=== PATIENT | male | born 1985 | race Caucasian/White ===

== ENCOUNTER 2019-06-21 12:47 | Inpatient (IN) | payer SELFPAY ==
[~2019-06-21] VITALS: Ht 180.3 cm; Wt 79.8 kg
[2019-06-21 13:20] LABS: BASOPHILS % (AUTO) 0 % (0-10); EOSINOPHILS % (AUTO) 0 % (0-10); HEMATOCRIT 33 % (40-54); HEMOGLOBIN 11.4 G/DL (13.3-17.7); LYMPHOCYTES # (AUTO) 0.6 X 10^3 (1.0-4.0); LYMPHOCYTES % (AUTO) 9 % (12-44); MEAN CORPUSCULAR HEMOGLOBIN 32 PG (25-34); MEAN CORPUSCULAR HGB CONC 35 G/DL (32-36); MEAN CORPUSCULAR VOLUME 92 FL (80-99); MEAN PLATELET VOLUME 11.2 FL (7.4-10.4); MONOCYTES % (AUTO) 13 % (0-12); NEUTROPHILS # (AUTO) 5.8 X 10^3 (1.8-7.8); NEUTROPHILS % (AUTO) 78 % (42-75); PLATELET COUNT 83 10^3/uL (130-400); RED CELL DISTRIBUTION WIDTH 19.5 % (10.0-14.5); WHITE BLOOD COUNT 7.4 10^3/uL (4.3-11.0)
[2019-06-21 13:27] LABS: INR 1.3 (0.8-1.4)
[2019-06-21 13:33] LABS: ALANINE AMINOTRANSFERASE 45 U/L (0-55); ALBUMIN 3.6 GM/DL (3.2-4.5); ALKALINE PHOSPHATASE 250 U/L (40-136); AMMONIA 45 UMOL/L (11-32); BUN/CREATININE RATIO 5; CALCIUM 8.8 MG/DL (8.5-10.1); CARBON DIOXIDE 26 MMOL/L (21-32); CHLORIDE 95 MMOL/L (98-107); CREATININE SERUM 0.65 MG/DL (0.60-1.30); GFR ESTIMATED > 60; GLUCOSE 117 MG/DL (70-105); POTASSIUM 3.1 MMOL/L (3.6-5.0); SODIUM 132 MMOL/L (135-145); TOTAL PROTEIN 7.6 GM/DL (6.4-8.2)
[2019-06-21 13:43] LABS: BILIRUBIN,TOTAL 14.9 MG/DL (0.1-1.0)
--- NOTE | 2019-06-21 13:57 | Diagnostic Imaging Report ---
INDICATION: Icterus. Pain. COMPARISON: 05/06/2018 FINDINGS: Single frontal view of the chest demonstrates normal heart size and pulmonary vascularity. The lungs are well aerated and clear. No large pleural effusion or pneumothorax is seen. The visualized osseous structures show no acute abnormalities. IMPRESSION: 1. No acute cardiopulmonary process. Dictated by: Dictated on workstation # [id number]
--- NOTE | 2019-06-21 14:07 | ED Abdominal Pain ---
General Chief Complaint: Abdominal/GI Problems Stated Complaint: LOWER ABD PAIN Nursing Triage Note: PT AMBULATED TO ROOM 9 PT CO OF R LOWER QUAD PAIN, PT HAS YELLOW COLOR TO SKIN AND EYES, PT ABD DISTENDED, STATES HAS HX OF ETOH. PT CO OF PAIN TO R LOWER ABD.PT HAS HAD CHILLS Sepsis Screen: No Definite Risk Source of Information: Patient Exam Limitations: No Limitations History of Present Illness Date Seen by Provider: Jun 21, 2019 Time Seen by Provider: 12:51 Initial Comments Here with report of acute onset of turning yellow which she noticed this morning. Also notes abdominal distention and lower abdominal pain. Did have chills this morning. Has not felt well over the last couple of days. Has had nausea. Used to be a heavy alcohol drinker but has not drank for a few years. Has had esophageal banding 2 and that has been at least 3 years ago now. Timing/Duration: 2-3 Days Severity/Quality: Moderate, Aching Location: RLQ, LLQ Radiation: No Radiation Activities at Onset: None Modifying Factors: Worsens With Eating Associated Symptoms: No Back Pain, No Chest Pain; Fever/Chills, Fatigue, Nausea/Vomiting, Shortness of Air, Swelling/Mass in Abdomen, Weakness Allergies and Home Medications Allergies Coded Allergies: No Known Drug Allergies (Unverified , 06/21/19) Patient Home Medication List Home Medication List Reviewed: Yes Review of Systems Review of Systems Constitutional: see HPI, chills, fever, malaise, weakness EENTM: See HPI; No Eye Pain, No Ear Pain Respiratory: Denies Cough; Shortness of Air; Denies Wheezing Cardiovascular: Denies Chest Pain, Denies Edema; Lightheadedness Gastrointestinal: Abdomen Distended, Abdominal Pain, Constipated, Nausea Genitourinary: No Symptoms Reported Musculoskeletal: muscle weakness; No neck pain Skin: change in color; No lesions Psychiatric/Neurological: Denies Headache; Weakness All Other Systems Reviewed Negative Unless Noted: Yes Past Uzbplfk-Oujqhp-Wqipxq Hx Past Med/Social Hx: Reviewed Nursing Past Med/Soc Hx Patient Social History Alcohol Use: Past History Number of Drinks Today: 0 Recreational Drug Use: No Smoking Status: Current Everyday Smoker Type Used: Cigarettes Recent Foreign Travel: No Contact w/Someone Who Travel: No Recent Infectious Disease Expo: No Recent Hopitalizations: No Physical Abuse: No Sexual Abuse: No Past Medical History Surgeries: Yes (BANDING ESOPHAGEAL VARCIES) Respiratory: No Cardiac: No Neurological: No Genitourinary: No Musculoskeletal: No Endocrine: No HEENT: No Cancer: No Psychosocial: No Blood Disorders: No Adverse Reaction/Blood Tranf: No Family Medical History Reviewed Nursing Family Hx Physical Exam Vital Signs Vital Signs - First Documented 06/21/19 13:00 Temp 100.3 Pulse 103 Resp 18 B/P (MAP) 140/87 (104) Pulse Ox 99 Capillary Refill : Less Than 3 Seconds Height/Weight/BMI Height: 5'11.00" Weight: 175lbs. oz. 79.139148wn; BMI Method:Stated General Appearance: WD/WN, no apparent distress HEENT: PERRL/EOMI, pharynx normal, scleral icterus (R), scleral icterus (L) Neck: full range of motion, supple Respiratory: lungs clear, decreased breath sounds; No wheezing Cardiovascular: no murmur, tachycardia Peripheral Pulses: 2+ Dorsalis Pedis (R), 2+ Left Dors-Pedis (L), 2+ Radial Pulses (R), 2+ Radial Pulses (L) Gastrointestinal: soft, distended, tenderness (bilateral lower quadrants), hepatomegaly Extremities: non-tender, normal inspection Back: normal inspection, no CVA tenderness, no vertebral tenderness Neurologic/Psychiatric: alert, oriented x 3 Skin: warm/dry, jaundice Focused Exam Lactate Level 06/21/19 13:10: Lactic Acid Level 2.78*H 06/21/19 15:10: Lactic Acid Level 1.65 Lactic Acid Level Laboratory Tests Test 06/21/19 13:10 06/21/19 15:10 Lactic Acid Level 2.78 MMOL/L (0.50-2.00) *H 1.65 MMOL/L (0.50-2.00) Progress/Results/Core Measures Results/Orders Lab Results Laboratory Tests Test 06/21/19 13:10 06/21/19 14:48 06/21/19 15:10 Range/Units White Blood Count 7.4 4.3-11.0 10^3/uL Red Blood Count 3.57 L 4.35-5.85 10^6/uL Hemoglobin 11.4 L 13.3-17.7 G/DL Hematocrit 33 L 40-54 % Mean Corpuscular Volume 92 80-99 FL Mean Corpuscular Hemoglobin 32 25-34 PG Mean Corpuscular Hemoglobin Concent 35 32-36 G/DL Red Cell Distribution Width 19.5 H 10.0-14.5 % Platelet Count 83 L 130-400 10^3/uL Mean Platelet Volume 11.2 H 7.4-10.4 FL Neutrophils (%) (Auto) 78 H 42-75 % Lymphocytes (%) (Auto) 9 L 12-44 % Monocytes (%) (Auto) 13 H 0-12 % Eosinophils (%) (Auto) 0 0-10 % Basophils (%) (Auto) 0 0-10 % Neutrophils # (Auto) 5.8 1.8-7.8 X 10^3 Lymphocytes # (Auto) 0.6 L 1.0-4.0 X 10^3 Monocytes # (Auto) 1.0 0.0-1.0 X 10^3 Eosinophils # (Auto) 0.0 0.0-0.3 10^3/uL Basophils # (Auto) 0.0 0.0-0.1 10^3/uL Prothrombin Time 17.0 H 12.2-14.7 SEC INR Comment 1.3 0.8-1.4 Activated Partial Thromboplast Time 44 H 24-35 SEC Sodium Level 132 L 135-145 MMOL/L Potassium Level 3.1 L 3.6-5.0 MMOL/L Chloride Level 95 L 98-107 MMOL/L Carbon Dioxide Level 26 21-32 MMOL/L Anion Gap 11 5-14 MMOL/L Blood Urea Nitrogen 3 L 7-18 MG/DL Creatinine 0.65 0.60-1.30 MG/DL Estimat Glomerular Filtration Rate > 60 BUN/Creatinine Ratio 5 Glucose Level 117 H 70-105 MG/DL Lactic Acid Level 2.78 *H 1.65 0.50-2.00 MMOL/L Calcium Level 8.8 8.5-10.1 MG/DL Corrected Calcium 9.1 8.5-10.1 MG/DL Total Bilirubin 14.9 *H 0.1-1.0 MG/DL Aspartate Amino Transf (AST/SGOT) 144 H 5-34 U/L Alanine Aminotransferase (ALT/SGPT) 45 0-55 U/L Alkaline Phosphatase 250 H 40-136 U/L Ammonia 45 H 11-32 UMOL/L Total Protein 7.6 6.4-8.2 GM/DL Albumin 3.6 3.2-4.5 GM/DL Urine Color LOWELL H Urine Clarity SLIGHTLY CLOUDY Urine pH 6.5 5-9 Urine Specific [place] 1.015 L 1.016-1.022 Urine Protein 2+ H NEGATIVE Urine Glucose (UA) NEGATIVE NEGATIVE Urine Ketones 2+ H NEGATIVE Urine Nitrite POSITIVE H NEGATIVE Urine Bilirubin 3+ H NEGATIVE Urine Urobilinogen 8 H NORMAL MG/DL Urine Leukocyte Esterase 1+ H NEGATIVE Urine RBC (Auto) 2+ H NEGATIVE Urine RBC RARE /HPF Urine WBC 2-5 /HPF Urine Squamous Epithelial Cells 0-2 /HPF Urine Crystals PRESENT H /LPF Urine Amorphous Sediment FEW ENRIKE URATES H /LPF Urine Bacteria FEW H /HPF Urine Casts NONE /LPF Urine Mucus LARGE H /LPF Urine Culture Indicated CULTURE PENDING My Orders Orders - ESTEFANI HARTMAN MD Cbc With Automated Diff (06/21/19 13:01) Comprehensive Metabolic Panel (06/21/19 13:01) Blood Culture (06/21/19 13:01) Sputum Culture (06/21/19 13:01) Urinalysis (06/21/19 13:01) Urine Culture (06/21/19 13:01) Protime With Inr (06/21/19 13:01) Partial Thromboplastin Time (06/21/19 13:01) Chest 1 View, Ap/Pa Only (06/21/19 13:01) Ed Iv/Invasive Line Start (06/21/19 13:01) Vital Signs Adult Sepsis Patie Q15M (06/21/19 13:01) Remove Rings In Anticipation O (06/21/19 13:01) Lactic Acid Analyzer (06/21/19 13:01) Ammonia (06/21/19 13:01) Ct Abdomen/Pelvis W (06/21/19 13:57) Iohexol Injection (Omnipaque 350 Mg/Ml 1 (06/21/19 14:15) Di Iv Start (Assessment) .IV start (06/21/19 14:13) Received Contrast (Hold Metformin- Contr (06/21/19 14:15) Ns (Ivpb) (Sodium Chloride 0.9% Ivpb Bag (06/21/19 14:15) Ceftriaxone For Iv Use (Rocephin For I (06/21/19 16:30) Nicotine Patch (Nicoderm Patch) (06/21/19 16:45) Medications Given in ED Current Medications Medications Dose Ordered Sig/Juanito Route Start Time Stop Time Status Last Admin Dose Admin Ceftriaxone Sodium 1000 mg/ Sterile Water 10 ml @ 200 mls/hr ONCE ONCE IV 06/21/19 16:30 06/21/19 16:32 DC 06/21/19 16:29 200 MLS/HR Iohexol 100 ml ONCE ONCE IV 06/21/19 14:15 06/21/19 14:43 DC 06/21/19 14:54 85 ML Sodium Chloride 100 ml ONCE ONCE IV 06/21/19 14:15 06/21/19 14:43 DC 06/21/19 14:54 80 ML Vital Signs/I&O 06/21/19 13:00 Temp 100.3 Pulse 103 Resp 18 B/P (MAP) 140/87 (104) Pulse Ox 99 Blood Pressure Mean: 104 Progress Progress Note : Progress Note Seen and evaluated. IV, labs, EKG and chest x-ray ordered. Ammonia, lactic acid and blood cultures ordered. UA ordered. Monitor patient. Patient declined pain medicine and does not need anything for nausea currently. Anticipate CT abdomen pelvis. 1407: CT abdomen and pelvis with contrast ordered. Monitor patient. 1 610: CT results noted. I have talked with Dr. Lees, surgeon on-call. Patient will need MRI and I did try to get this done this evening but there were no MRI slots available. There is an MRI slot tomorrow. UTI noted. Patient did have elevated lactic acid which is improved. We will initiate Rocephin 1 g IV which is been ordered. Patient to be admitted with Dr. Lees on consult. I did discuss the case with Dr. Floyd and she accepts patient for admission, inpatient status. Nicotine patch ordered. Discussed with patient and family who agree with plan. Diagnostic Imaging Diagonstic Imaging: Xray Plain Films/CT/US/NM/MRI: chest Comments [facility] [place], [place] NAME: JACKIE MARTINEZ MED REC#: [id number] PT STATUS: REG ER : 1985 PHYSICIAN: ESTEFANI HARTMAN MD ADMIT DATE: 06/21/19/ER Draft Date of Exam:06/21/19 CHEST 1 VIEW, AP/PA ONLY INDICATION: Icterus. Pain. COMPARISON: 05/06/2018 FINDINGS: Single frontal view of the chest demonstrates normal heart size and pulmonary vascularity. The lungs are well aerated and clear. No large pleural effusion or pneumothorax is seen. The visualized osseous structures show no acute abnormalities. IMPRESSION: 1. No acute cardiopulmonary process. Dictated on workstation # [id number] Dict: 06/21/19 1353 Trans: 06/21/19 1356 [id number] Interpreted by: SABRINA WARD MD Electronically signed by: Reviewed: Reviewed by Me Diagonstic Imaging: CT Plain Films/CT/US/NM/MRI: abdomen, pelvis Comments Draft Date of Exam:06/21/19 CT ABDOMEN/PELVIS W PROCEDURE: CT abdomen and pelvis with contrast. TECHNIQUE: Multiple contiguous axial images were obtained through the abdomen and pelvis after administration of intravenous contrast. Auto Exposure Controls were utilized during the CT exam to meet ALARA standards for radiation dose reduction. INDICATION: Lower abdominal pain. FINDINGS: Comparison is 10/26/2015. Liver is enlarged. The attenuation of the liver is markedly heterogeneous. In addition, there is an area of arterial enhancement in segment 4A which was not seen on the prior exam. It measures 6.5 x 3.5 cm. The degree of heterogeneity throughout the liver may reflect areas of steatosis and sparing as the liver was severely steatotic on the prior exam. The liver surface appears nodular in keeping with cirrhosis. Gallbladder is normal with the exception of mild wall thickening which is likely related to liver disease. Pancreas is normal. Spleen is enlarged suggestive of portal hypertension. Adrenal glands are normal. Kidneys enhance symmetrically without focal lesion. No hydronephrosis. Urinary bladder is well. There are no dilated loops of large or small bowel. There is wall thickening and stranding about the ascending colon likely reflective of portal hypertensive colopathy. No bowel obstruction. There is a small volume of ascites. No abdominal or pelvic lymphadenopathy. There are no suspicious osseous lesions. IMPRESSION: 1. Enlarged and heterogeneous liver with surface nodularity. Splenomegaly. Findings most consistent with cirrhosis and portal hypertension. 2. Fairly large area of arterial hyperenhancement in segment 4A is concerning for hepatocellular carcinoma, less likely an intrahepatic portosystemic shunt. A dedicated liver MRI with gadolinium is recommended for further evaluation. 3. Thickened ascending colon likely representing portal hypertensive colopathy. 4. The severe heterogeneity of the liver is likely in part related to severe steatosis with areas of sparing, as the liver was severely steatotic on the prior exam. An MRI will be helpful for confirmation that this is fat deposition rather than infiltrative hepatocellular carcinoma. Dictated on workstation # [id number] Dict: 06/21/19 1449 Trans: 06/21/19 1507 [facility] [id number] Interpreted by: TANIKA LANE MD Electronically signed by: Departure Communication (Admissions) Time/Spoke to Admitting Phy: 16:15 Time/Spoke to Consulting Phy: 16:10 Impression Primary Impression: Liver mass Additional Impressions: Liver failure Qualified Codes: K72.00 - Acute and subacute hepatic failure without coma Urinary tract infection Qualified Codes: N30.00 - Acute cystitis without hematuria Disposition: ADMITTED INPATIENT Condition: Stable Admissions Decision to Admit Reason: Admit from ER (General) Decision to Admit/Date: Jun 21, 2019 Time/Decision to Admit Time: 16:10 Departure-Patient Inst. Referrals: NO,LOCAL PHYSICIAN (PCP) Primary Care Physician ESTEFANI HARTMAN MD Jun 21, 2019 14:07
[2019-06-21] MEDS ORDERED: HOLD METFORMIN - RECEIVED CONTRAST 20 ML VIAL IV SCH (14:15)
[2019-06-21] MEDS ORDERED: NS 100 ML (IVPB) BAG IV ONE (14:15)
[2019-06-21] MEDS ORDERED: IOHEXOL 350 MG/ML 100 ML (OMNIPAQUE 350) VIAL IV ONE (14:15)
[2019-06-21 15:02] LABS: CLARITY,URINE SLIGHTLY CLOUDY; COLOR,URINE AMBER; GLUCOSE, URINE (UA) NEGATIVE (NEGATIVE); KETONES,URINE 2+ (NEGATIVE); LEUKOCYTE ESTERASE ,URINE 1+ (NEGATIVE); NITRITE,URINE POSITIVE (NEGATIVE); PH,URINE 6.5 (5-9); PROTEIN,URINE 2+ (NEGATIVE); UROBILINOGEN,URINE 8 MG/DL (NORMAL)
--- NOTE | 2019-06-21 15:07 | Diagnostic Imaging Report ---
PROCEDURE: CT abdomen and pelvis with contrast. TECHNIQUE: Multiple contiguous axial images were obtained through the abdomen and pelvis after administration of intravenous contrast. Auto Exposure Controls were utilized during the CT exam to meet ALARA standards for radiation dose reduction. INDICATION: Lower abdominal pain. FINDINGS: Comparison is 10/26/2015. Liver is enlarged. The attenuation of the liver is markedly heterogeneous. In addition, there is an area of arterial enhancement in segment 4A which was not seen on the prior exam. It measures 6.5 x 3.5 cm. The degree of heterogeneity throughout the liver may reflect areas of steatosis and sparing as the liver was severely steatotic on the prior exam. The liver surface appears nodular in keeping with cirrhosis. Gallbladder is normal with the exception of mild wall thickening which is likely related to liver disease. Pancreas is normal. Spleen is enlarged suggestive of portal hypertension. Adrenal glands are normal. Kidneys enhance symmetrically without focal lesion. No hydronephrosis. Urinary bladder is well. There are no dilated loops of large or small bowel. There is wall thickening and stranding about the ascending colon likely reflective of portal hypertensive colopathy. No bowel obstruction. There is a small volume of ascites. No abdominal or pelvic lymphadenopathy. There are no suspicious osseous lesions. IMPRESSION: 1. Enlarged and heterogeneous liver with surface nodularity. Splenomegaly. Findings most consistent with cirrhosis and portal hypertension. 2. Fairly large area of arterial hyperenhancement in segment 4A is concerning for hepatocellular carcinoma, less likely an intrahepatic portosystemic shunt. A dedicated liver MRI with Gadavist is recommended for further evaluation. 3. Thickened ascending colon likely representing portal hypertensive colopathy. 4. The severe heterogeneity of the liver is likely in part related to severe steatosis with areas of sparing, as the liver was severely steatotic on the prior exam. An MRI will be helpful for confirmation that this is fat deposition rather than infiltrative hepatocellular carcinoma. Dictated by: Dictated on workstation # [id number]
[2019-06-21 15:18] LABS: RBC,URINE RARE /HPF
[2019-06-21 15:19] LABS: AMORPHOUS SEDIMENT,UR FEW AMOR URATES /LPF; BACTERIA,URINE FEW /HPF; SQUAMOUS EPITHELIAL CELL,UR 0-2 /HPF
[2019-06-21 15:27] LABS: BILIRUBIN,URINE 3+ (NEGATIVE)
[2019-06-21] MEDS ORDERED: cefTRIAXone FOR IV USE 1,000 MG in WATER (STERILE) FOR INJECTION 10 ML IV ONE (16:30)
[2019-06-21] MEDS ORDERED: NICOTINE 21 MG (NICODERM) PATCH TD ONE (16:45)
[2019-06-21 17:52] VITALS: BP 132/88
[2019-06-21] MEDS ORDERED: CATHETER FLUSH 10 ML SYR IV PRN (18:00)
[2019-06-21] MEDS ORDERED: ONDANSETRON 4 MG/2 ML (SDV) Z0FRAN IV PRN ×2 (18:00→21:00)
[2019-06-21] MEDS ORDERED: LORazepam 0.5 MG (ATIVAN) TABLET PO PRN (18:00)
--- NOTE | 2019-06-21 18:00 | NUR ---
JACKIE MARTINEZ Nando admitted to room 409-1, with an admitting diagnosis of live mass, on 06/21/19 from ER, accompanied by staff and significant other .JACKIE MARTINEZ introduced to surroundings, call light, bed controls, phone, TV, temperature control, lights, meal times, smoking policy, visitor policy, side rail policy, bathrooms and showers. Patient Rights given to patient in the handbook. JACKIE MARTINEZ verbalizes understanding that [facility] is not responsible for the loss or damage to any personal effects or valuables that are kept in the patients posession during their hospitalization. The following Patient Care Plans and discharge were discussed with the patient . JACKIE MARTINEZ verbalizes understanding of Interdisciplinary Patient Education. Patient and significant other were informed about the Rapid Response Team and its purpose.
[2019-06-21 19:24] VITALS: BP 118/76
[2019-06-21] MEDS ORDERED: ANTACID SUSP 30 ML UDC (MYLANTA) PO PRN (21:00)
[2019-06-21] MEDS ORDERED: ACETAMINOPHEN 325 MG TABLET PO PRN (21:00)
[2019-06-21] MEDS ORDERED: MELATONIN 3 MG TABLET PO SCH (21:00)
[2019-06-21] MEDS ORDERED: MILK OF MAGNESIA 400 MG/5 ML 30 ML UDC PO PRN (21:00)
[2019-06-21] MEDS: CATHETER FLUSH 10 ML SYR IV SCH (21:21)
[2019-06-22 00:37] VITALS: BP 112/65
[2019-06-22 03:48] VITALS: BP 112/68
[2019-06-22] MEDS: CATHETER FLUSH 10 ML SYR IV SCH ×2 (05:59→15:04)
[2019-06-22 07:07] LABS: BASOPHILS % (AUTO) 0 % (0-10); EOSINOPHILS # (AUTO) 0.1 10^3/uL (0.0-0.3); EOSINOPHILS % (AUTO) 1 % (0-10); HEMATOCRIT 29 % (40-54); HEMOGLOBIN 9.9 G/DL (13.3-17.7); LYMPHOCYTES # (AUTO) 0.7 X 10^3 (1.0-4.0); LYMPHOCYTES % (AUTO) 11 % (12-44); MEAN CORPUSCULAR HEMOGLOBIN 32 PG (25-34); MEAN CORPUSCULAR HGB CONC 34 G/DL (32-36); MEAN CORPUSCULAR VOLUME 92 FL (80-99); MEAN PLATELET VOLUME 11.3 FL (7.4-10.4); MONOCYTES # (AUTO) 0.9 X 10^3 (0.0-1.0); MONOCYTES % (AUTO) 15 % (0-12); NEUTROPHILS # (AUTO) 4.6 X 10^3 (1.8-7.8); NEUTROPHILS % (AUTO) 73 % (42-75); PLATELET COUNT 84 10^3/uL (130-400); RED CELL DISTRIBUTION WIDTH 19.5 % (10.0-14.5); WHITE BLOOD COUNT 6.4 10^3/uL (4.3-11.0)
[2019-06-22 07:27] LABS: INR 1.4 (0.8-1.4); PROTHROMBIN TIME PATIENT 17.6 SEC (12.2-14.7)
[2019-06-22 07:37] LABS: ALANINE AMINOTRANSFERASE 36 U/L (0-55); ALBUMIN 3.1 GM/DL (3.2-4.5); ALKALINE PHOSPHATASE 222 U/L (40-136); BUN/CREATININE RATIO 7; CALCIUM 8.4 MG/DL (8.5-10.1); CARBON DIOXIDE 22 MMOL/L (21-32); CHLORIDE 97 MMOL/L (98-107); CREATININE SERUM 0.57 MG/DL (0.60-1.30); GFR ESTIMATED > 60; GLUCOSE 80 MG/DL (70-105); POTASSIUM 3.2 MMOL/L (3.6-5.0); SODIUM 134 MMOL/L (135-145); TOTAL PROTEIN 6.4 GM/DL (6.4-8.2)
[2019-06-22 07:41] LABS: BILIRUBIN,TOTAL 12.3 MG/DL (0.1-1.0)
[2019-06-22] MEDS ORDERED: MULT1TAB69 PO (08:44)
[2019-06-22] MEDS ORDERED: DIPH25CA79 PO (08:44)
[2019-06-22] MEDS ORDERED: POTA99TA21 PO (08:44)
[2019-06-22] MEDS ORDERED: FOLI0.8C PO (08:44)
[2019-06-22] MEDS ORDERED: CALC-654 PO (08:44)
[2019-06-22 08:56] VITALS: BP 108/62
[2019-06-22] MEDS ORDERED: NICOTINE PATCH REMOVAL TP SCH (08:59)
[2019-06-22] MEDS ORDERED: NICOTINE 21 MG (NICODERM) PATCH TD SCH (09:00)
--- NOTE | 2019-06-22 10:12 | History & Physical-Hospitalist ---
History of Present Illness Source: patient Date Seen 06/22/19 Attending Physician Marques Floyd MD PCP Corey Rebolledo MD Referring Physician Date of Admission Jun 21, 2019 at 4:52 pm Home Medications & Allergies Home Medications Reviewed patient Home Medication Reconciliation performed by pharmacy medication reconciliations airplane technician and/or nursing. Patients Allergies have been reviewed. Allergies Allergies Coded Allergies No Known Drug Allergies (Unverified06/21/19) Past Fnktqip-Mvdpxy-Nmotoo Hx Past Med/Social Hx: Reviewed Nursing Past Med/Soc Hx Patient Social History Alcohol Use: Past History Number of Drinks Today: 0 Recreational Drug Use: No Smoking Status: Current Everyday Smoker Type Used: Cigarettes Physical Abuse Screen: No Sexual Abuse: No Recent Foreign Travel: No Contact w/other who traveled: No Recent Hopitalizations: No Recent Infectious Disease Expo: No Seasonal Allergies Seasonal Allergies: Yes Past Medical History Genitourinary: Kidney Infection Skin/Integumentary: Psoriasis History of Blood Disorders: No Adverse Reaction to Blood Sykes: No Family History Reviewed Nursing Family Hx Alcoholism Cardiovascular disease Dysphasia Psychosocial problem Severe allergy Visual disorder Physical Exam Physical Exam Vital Signs Vital Signs - First Documented 06/21/19 13:00 Temp 100.3 Pulse 103 Resp 18 B/P (MAP) 140/87 (104) Pulse Ox 99 Capillary Refill : Less Than 3 Seconds Height, Weight, BMI Height: 5'11.00" Weight: 176lbs. 0.0oz. 79.713806rc; 24.6 BMI Method:Stated Results Results/Procedures Labs Laboratory Tests 06/21/19 13:10 06/22/19 05:38 Patient resulted labs reviewed. Clinical Quality Measures DVT/VTE Risk/Contraindication: Risk Factor Score Per Nursin RFS Level Per Nursing on Admit: 2=Moderate MARQUES FLOYD MD Jun 22, 2019 10:12 am
[2019-06-22] MEDS ORDERED: GADOBUTROL 10 MMOL/10 ML (GADAVIST) VIAL IV ONE (11:15)
[2019-06-22 12:00] VITALS: BP 131/85
[2019-06-22] MEDS ORDERED: CEPH-507 PO (12:29)
--- NOTE | 2019-06-22 13:58 | Diagnostic Imaging Report ---
PROCEDURE: MR imaging abdomen with and without contrast. TECHNIQUE: Multiplanar, multisequence MR imaging of the abdomen was performed with and without contrast. INDICATION: Liver failure. FINDINGS: The CT abdomen/pelvis exam of 06/21/2019 noted an enlarged heterogeneous liver with surface nodularity as well as splenomegaly. MRI was recommended for further evaluation. On the system dispatcher film of this exam, however, there is metallic artifact in the left upper quadrant. In reviewing the CT abdomen/pelvis exam, there was a 1.8 cm linear metallic density within the lumen of the stomach. Because the nature of this metallic density was unknown, the MRI exam was terminated. IMPRESSION: 1. The MRI exam was terminated due to the presence of a metallic foreign body in the stomach. If the nature of the foreign body can be determined or if the foreign body can be removed, the MRI exam can be performed. 2. These results were discussed with Dr. Bibi Floyd. Dictated by: Dictated on workstation # [id number]
--- NOTE | 2019-06-22 14:15 | Short Stay Summary-Hospitalist ---
History of Present Illness HPI/Chief Complaint Pt is a a 34yoCM with a PMH of esophageal varices, alcoholic cirrhosis who presented to the ER with CC of abdominal pain and yellow skin. He states that his symptoms started 06/16 with cramping abdominal pain. It continued to worsen and he noticed on 06/18 that his skin was yellowing. His pain continued to worsen prompting him to seek evaluation in the ER. He describes the pain as cramping. He googled his symptoms and thought he had appendicitis. He was also suffering from chills and subjective fevers. His appetite was decreased and he was trying to increase his fluid intake but thought he had decreased urine output. On arrival to the ER he was found to have a a bilirubin on >14. He was also found to have a urinary tract infection. CT abdomen was done which revealed a possible HCC. He was admitted for observation. This morning he reports feeling much better and was able to get some sleep overnight. He still has some pain but that is improving. Source: patient Date Seen 06/22/19 Time Seen by a Provider: 09:30 Attending Physician Marques Floyd MD PCP Corey Rebolledo MD Referring Physician Date of Admission Jun 21, 2019 at 16:52 Home Medications & Allergies Home Medications Reviewed patient Home Medication Reconciliation performed by pharmacy medication reconciliations pbx technician and/or nursing. Patients Allergies have been reviewed. Allergies Allergies Coded Allergies No Known Drug Allergies (Unverified06/21/19) Past Diuzkdb-Uotgql-Mbdvkk Hx Past Med/Social Hx: Reviewed Nursing Past Med/Soc Hx Patient Social History Alcohol Use: Occasionally Uses (with history of significant alcohol abuse) Number of Drinks Today: 0 Recreational Drug Use: No Smoking Status: Current Everyday Smoker Cigaretts per day: 10 Type Used: Cigarettes Physical Abuse Screen: No Sexual Abuse: No Recent Foreign Travel: No Contact w/other who traveled: No Recent Hopitalizations: No Recent Infectious Disease Expo: No Seasonal Allergies Seasonal Allergies: Yes Past Medical History Surgeries: Abdominal (esophageal varices banding) Genitourinary: Kidney Infection Skin/Integumentary: Psoriasis History of Blood Disorders: No Adverse Reaction to Blood Sykes: No Family History Reviewed Nursing Family Hx Alcoholism Cardiovascular disease Dysphasia Psychosocial problem Severe allergy Visual disorder Review of Systems Constitutional: chills; No fever; malaise EENTM: no symptoms reported Respiratory: No cough, No dyspnea on exertion, No short of breath Cardiovascular: No chest pain, No palpitations Gastrointestinal: abdominal pain (RLQ); No constipation, No diarrhea, No heartburn, No nausea, No vomiting Genitourinary: decreased output Musculoskeletal: no symptoms reported Skin: change in color Psychiatric/Neurological: Anxiety; Denies Headache, Denies Weakness Physical Exam Physical Exam Vital Signs Vital Signs - First Documented 06/21/19 13:00 Temp 100.3 Pulse 103 Resp 18 B/P (MAP) 140/87 (104) Pulse Ox 99 Capillary Refill : Less Than 3 Seconds Height, Weight, BMI Height: 5'11.00" Weight: 176lbs. 0.0oz. [id number]; 24.6 BMI Method:Stated General Appearance: No Apparent Distress, WD/WN Eyes: Bilateral Eye Scleral Icterus HEENT: Moist Mucous Membranes, Scleral Icterus (L), Scleral Icterus (R) Neck: Non Tender, Supple; No Thyromegaly Respiratory: Lungs Clear, No Accessory Muscle Use, No Respiratory Distress Cardiovascular: Regular Rate, Rhythm, No JVD, No Murmur Gastrointestinal: Normal Bowel Sounds, Non Tender, Soft, Distended; No Guarding; Hepatomegaly Extremity: No Calf Tenderness, No Pedal Edema Neurologic/Psychiatric: Alert, Oriented x3, Normal Mood/Affect; No Aphasia, No Facial Droop Skin: Warm/Dry, Jaundice Results Results/Procedures Labs Laboratory Tests 06/22/19 05:38 Patient resulted labs reviewed. Imaging: Reviewed Imaging Report, Discussed Imaging with Radiologist Imaging Date of Exam: 06/21/19 CT ABDOMEN/PELVIS W PROCEDURE: CT abdomen and pelvis with contrast. TECHNIQUE: Multiple contiguous axial images were obtained through the abdomen and pelvis after administration of intravenous contrast. Auto Exposure Controls were utilized during the CT exam to meet ALARA standards for radiation dose reduction. INDICATION: Lower abdominal pain. FINDINGS: Comparison is 10/26/2015. Liver is enlarged. The attenuation of the liver is markedly heterogeneous. In addition, there is an area of arterial enhancement in segment 4A which was not seen on the prior exam. It measures 6.5 x 3.5 cm. The degree of heterogeneity throughout the liver may reflect areas of steatosis and sparing as the liver was severely steatotic on the prior exam. The liver surface appears nodular in keeping with cirrhosis. Gallbladder is normal with the exception of mild wall thickening which is likely related to liver disease. Pancreas is normal. Spleen is enlarged suggestive of portal hypertension. Adrenal glands are normal. Kidneys enhance symmetrically without focal lesion. No hydronephrosis. Urinary bladder is well. There are no dilated loops of large or small bowel. There is wall thickening and stranding about the ascending colon likely reflective of portal hypertensive colopathy. No bowel obstruction. There is a small volume of ascites. No abdominal or pelvic lymphadenopathy. There are no suspicious osseous lesions. IMPRESSION: 1. Enlarged and heterogeneous liver with surface nodularity. Splenomegaly. Findings most consistent with cirrhosis and portal hypertension. 2. Fairly large area of arterial hyperenhancement in segment 4A is concerning for hepatocellular carcinoma, less likely an intrahepatic portosystemic shunt. A dedicated liver MRI with Gadavist is recommended for further evaluation. 3. Thickened ascending colon likely representing portal hypertensive colopathy. 4. The severe heterogeneity of the liver is likely in part related to severe steatosis with areas of sparing, as the liver was severely steatotic on the prior exam. An MRI will be helpful for confirmation that this is fat deposition rather than infiltrative hepatocellular carcinoma. Short Stay Diagnosis Discharge Diagnosis-Short Stay Admission Diagnosis ESLD with hyperbilirubinemia Final Discharge Diagnosis ESLD with hyperbilirubinemia Conclusion Plan ESLD with hyperbilirubinemia Alcoholic Cirrhosis HCC Bilirubin elevated but trending down Discussed with Dr Lees who will see in consultation Needs outpatient hepatology Unable to get MRI due to metallic object in stomach- likely banding per Dr Lees I called and discussed with his PCP Dr Rebolledo to update him to these findings UTI Continue on Rocephin Transition to Keflex for DC Clinical Quality Measures DVT/VTE Risk/Contraindication: Risk Factor Score Per Nursin RFS Level Per Nursing on Admit: 2=Moderate MARQUES FLOYD MD Jun 22, 2019 14:15
[2019-06-22] MEDS ORDERED: cefTRIAXone 1,000 MG/SWFI 10 ML IV PUSH IV SCH ×2 (16:00)
--- NOTE | 2019-06-22 16:23 | Discharge Inst-Simple/Standard ---
Discharge Inst-Standard Patient Instructions/Follow Up Plan of Care/Instructions/FU: Please continue to take your medications as written. It is important to follow up with your primary care doctor to follow up this hospital stay and with your GI Dr Dr Tang to further follow up on your liver. Activity as Tolerated: Yes Discharge Diet: Other Diet (Per Dr Lees's recommendations) Return to The Hospital For: Fever, worsening pain, confusion, if you feel you are getting worse. MARQUES PAN MD Jun 22, 2019 4:19 pm
[2019-06-22 17:21] VITALS: BP 131/85
--- NOTE | 2019-06-23 12:03 | CONSULTATION REPORT ---
DATE OF SERVICE: 06/21/2019 ATTENDING PHYSICIAN: Corey Rebolledo MD HISTORY OF PRESENT ILLNESS: The patient is a 34-year-old male, who presented to the emergency room late last night with complaints of jaundice as well as abdominal distention and bilateral lower abdominal pain. He reported that for approximately the last 5 days, he has felt ill and just did not feel well. He reports that yesterday he started having lower abdominal pain as well as the abdominal distention and reports that he did notice yellowing of his skin and eyes. He reports he was having some nausea. He reports that during his 20s, he did use to be a heavy drinker and would drink around a case of beer a day as well as shots and other hard liquor. He does report a history of esophageal banding and then later what sounds to be a cauterization of the esophageal varices. PAST MEDICAL HISTORY: SVT, esophageal varices, psoriasis. PAST SURGICAL HISTORY: Esophageal banding and then cauterization of the esophageal varices. ALLERGIES: No known drug allergies. MEDICATIONS: Vitamins. SOCIAL HISTORY: Positive for smoke half pack per day for approximately 15 years, previous for alcohol abuse for approximately 10-12 years. FAMILY HISTORY: Noncontributory. VITAL SIGNS: Temperature is 99.2, pulse 96, respirations 18, blood pressure 131/85, pulse ox 100% on room air. REVIEW OF SYSTEMS This is a well-nourished male, in no acute distress. He is not experiencing any shortness of breath or difficulty breathing. No chest pain, palpitations or diaphoresis. He does report some nausea, but no vomiting. He did report bilateral lower abdominal pain. No diarrhea or constipation. No red blood per rectum, no dark tarry stools. He did report chills. He did report some dysuria as well as frequency of urination. No recent inadvertent weight loss. PHYSICAL EXAMINATION: CHEST: Clear, good breath sounds bilateral. HEART: Regular, no murmurs. EXTREMITIES: No lower extremity edema. Negative Homans sign. HEENT: There is bilateral scleral icterus. No cervical adenopathy. ABDOMEN: Soft with some distention. There is some bilateral lower quadrant tenderness as well as hepatomegaly. SKIN: Warm, dry with jaundice. NEUROLOGIC: Awake, alert, and oriented x3. LABORATORY DATA: WBC is 7.4, RBC is 3.57, hemoglobin 11.4, hematocrit 33, and platelets 83. Sodium is 132, potassium is 3.1, chloride is 95, BUN 3, creatinine 0.65, and GFR greater than 60. AST is 144, ALT 45, alkaline phosphatase 250. Ammonia was 45. PT was 17.0, INR 1.3. Urine was 2+ ketones, positive for nitrite, 3+ bilirubin, 1+ leukocyte esterase, 2+ protein and 1.015 on specific gravity. ASSESSMENT AND PLAN: A 34-year-old male with urinary tract infection per urinalysis. He also had a CT scan, which did show enlarged and heterogenous liver with surface nodularity as well as splenomegaly. Findings are most consistent with cirrhosis and portal hypertension. There is also a fairly large area that was concerning for hepatocellular carcinoma of the liver. At this time, he does appear to have end-stage liver disease with hyperbilirubinemia as well as alcoholic liver cirrhosis and a possible mass of the liver. At this time, we are waiting on results of the MRI for further confirmation of a possible hepatocellular carcinoma. We will watch him at this time to proceed with conservative medical management with the liver cirrhosis with a low sodium diet of approximately 1.5 grams daily as well as a fluid restriction of 1.5 liters daily and 40-50 grams of protein daily. We will also proceed with referral for a intelligence consultant for further evaluation and management. We will have him continue with antibiotics for his urinary tract infection. Job ID: [id number] DocumentID: [id number] Dictated Date: 06/22/2019 14:36:39 Edger Machine Helper Date: 06/22/2019 17:29:07 Dictated By: DANTE PAREDES APRN
[2019-07-01] MEDS ORDERED: FURO20TA4 PO (16:49)
[2019-07-01] MEDS ORDERED: SPIR25TA5 PO (16:49)
== END 2019-06-22 17:28 | disposition home or self-care (01) | DRG 433 ==
LOC: EDUNIT# 12:47 → ER 12:48 → 4TH 16:52
PROVIDERS: ADMIT Family Medicine; ATTEND Family Medicine
DX: K70.30 Alcoholic cirrhosis of liver without ascites (principal); K76.6 Portal hypertension; N30.00 Acute cystitis without hematuria; K72.90 Hepatic failure, unspecified without coma; R16.0 Hepatomegaly, not elsewhere classified; F17.210 Nicotine dependence, cigarettes, uncomplicated; L40.9 Psoriasis, unspecified
CPT/HCPCS: 36415; 71045; 74177; 74183; 80053; 81000; 82140; 83605; 85025; 85610; 85730; 87040; 87088; 96365

== ENCOUNTER 2019-06-25 00:19 | Emergency (ER) | payer SELFPAY ==
[~2019-06-25] VITALS: Ht 180.3 cm; Wt 77.1 kg
[~2019-06-25 00:19] MED LIST: CALC-654 PO; CEPH-507 PO; DIPH25CA79 PO; FOLI0.8C PO; MULT1TAB69 PO; POTA99TA21 PO
[2019-06-25] MEDS ORDERED: CEPH500C (00:47)
[2019-06-25] MEDS ORDERED: NS IV 1000 ML 1,000 ML IV ONE ×3 (01:01→02:26)
[2019-06-25] MEDS ORDERED: PANTOPRAZOLE 40 MG (PROTONIX) VIAL IV STA (01:01)
[2019-06-25] MEDS ORDERED: PANTOPRAZOLE 40 MG (PROTONIX) VIAL IV ONE (01:15)
[2019-06-25] MEDS ORDERED: ONDANSETRON 4 MG/2 ML (SDV) Z0FRAN IVP ONE (01:15)
[2019-06-25 01:20] VITALS: BP_SYST 92; BP_SYST 94; BP_SYST 96; BP_DIAS 57; BP_DIAS 59
--- NOTE | 2019-06-25 01:31 | ED GI ---
General Chief Complaint: Abdominal/GI Problems Stated Complaint: THROWING UP BLOOD Nursing Triage Note: HEMATEMISIS X2 SINCE 0000, HX ESOPHAGEAL BANDING. DC'D FROM HOSPITAL 06/22/19 Sepsis Screen: Possible Sepsis Risk Source of Information: Patient Exam Limitations: No Limitations History of Present Illness Date Seen by Provider: Jun 25, 2019 Time Seen by Provider: 01:00 Initial Comments PT ARRIVES VIA POV FROM HOME PT HAS HISTORY OF LIVER FAILURE AND ESOPHAGEAL VARICES--S/P BANDING OF VARICES IN 2016 IN [place], AND CAUTERIZED VARICES IN [place] 11/2018. WAS ADMITTED AND DISMISSED TO HOME FROM HERE 06/21-06/22/19 FOR JAUNDICE/LIVER FAILURE AND ALSO HAD UTI. PT STARTED TURNING YELLOW OVER A WEEK AGO. ABDOMEN HAS BEEN BLOATED AND VERY FIRM FOR OVER A WEEK PT HAS NEVER SEEN A LIVER SPECIALIST, BUT IS PLANNING ON GETTING A REFERRAL TO SEE A SPECIALIST AT , BUT THIS HAS NOT BEEN DONE YET. PT STATES HE WOKE UP AT MIDNIGHT AND WAS NAUSEATED AND VOMITED PURE BLOOD X 1--STATES "3 OR 4 CUPS OF PURE BLOOD" C/O EPIGASTRIC PAIN AND SUPRAPUBIC PAIN NO LONGER NAUSEATED. NO DIARRHEA. HAD NORMAL BM TODAY. PT HAS HAD FEVER OF 100.8 EARLIER IN THE WEEK, AND WAS SENT HOME WITH RX FOR KEFLEX TO TREAT UTI. STATES TEMP HAS GRADUALLY BEEN COMING DOWN. HAD SUBJECTIVE FEVER LAST NIGHT, BUT NONE TODAY HAS HAD SOME DIFFICULTY URINATING DUE TO UTI THIS WEEK. PT STATES HE USED TO DRINK OVER A CASE OF BEER A DAY, UNTIL 2016 WHEN HE HAD BANDING OF ESOPHAGEAL VARICES CUT BACK TO A FEW MIXED DRINKS A DAY, UNTIL CAUTERIZATION OF VARICES 11/2018 HAS BEEN DRINKING "WINE WITH DINNER" UNTIL ADMIT HERE ON 06/21/19. CLAIMS NO ALCOHOL SINCE THEN. PT DENIES DRUG USE STILL SMOKES 1/2 PPD PCP: HAS BEEN DR. CALDERON IN [place]. MOVED TO [place] FOR WORK, AND RECENTLY MOVED HERE FOR WORK. HAS NOT ESTABLISHED WITH LOCAL DR. YANEZ. Allergies and Home Medications Allergies Coded Allergies: No Known Drug Allergies (Unverified , 06/21/19) Patient Home Medication List Home Medication List Reviewed: Yes Review of Systems Review of Systems Constitutional: see HPI; No dizziness; fever EENTM: Other (JAUNDICE) Respiratory: No Symptoms Reported Cardiovascular: No Symptoms Reported Gastrointestinal: See HPI, Abdominal Pain, Nausea, Vomiting (VOMITING BLOOD) Genitourinary: See HPI, Burning, Urgency Musculoskeletal: no symptoms reported Skin: other (JAUNDICE FOR OVER A WEEK) Psychiatric/Neurological: No Symptoms Reported Endocrine: No Symptoms Reported Hematologic/Lymphatic: No Symptoms Reported Past Nksruue-Ptgqjm-Htveku Hx Patient Social History Alcohol Use: Regular Use (OVER A CASE OF BEER/DAY UNTIL 2016, THEN FEW MIXED DRINKS A DAY UNTIL 11/2018, THEN "WINE WITH DINNER" SINCE THEN. CLAIMS NONE SINCE 06/21/19, PER PT ON 06/25/19) Recreational Drug Use: No Smoking Status: Current Everyday Smoker (1/2 PPD) Type Used: Cigarettes (/2 PPD) 2nd Hand Smoke Exposure: Yes Recent Foreign Travel: No Contact w/Someone Who Travel: No Recent Infectious Disease Expo: No Recent Hopitalizations: Yes (DC'D 06/22/19) Physical Abuse: No Sexual Abuse: No Mistreated: No Fear: No Immunizations Up To Date Tetanus Booster (TDap): Unknown Seasonal Allergies Seasonal Allergies: Yes Past Medical History Surgeries: Yes (ESOPHAGEAL VARICES BANDED X 2 IN 2017 IN [place]; THEN CAUTERIZATION OF ESOPHAGEAL VARICES 11/2018 IN [place]. ) Abdominal Respiratory: No Cardiac: No Neurological: No Genitourinary: Yes Kidney Infection Gastrointestinal: Yes Liver Disease/Jaundice, Gastrointestinal Bleed, Esophageal Varices, Cirrhosis Musculoskeletal: No Endocrine: No HEENT: No Cancer: No Psychosocial: No Integumentary: Yes Psoriasis Blood Disorders: No Adverse Reaction/Blood Tranf: No Family Medical History Alcoholism Cardiovascular disease Dysphasia Psychosocial problem Severe allergy Visual disorder Physical Exam Vital Signs Vital Signs - First Documented 06/25/19 00:42 Temp 100.2 Pulse 104 Resp 18 B/P (MAP) 101/58 (72) Pulse Ox 97 O2 Delivery Room Air Capillary Refill : Less Than 3 Seconds Height/Weight/BMI Height: 5'11.00" Weight: 170lbs. 0.0oz. [id number]; 24.6 BMI Method:Stated General Appearance: WD/WN, no apparent distress, other (DOES NOT APPEAR TO BE IN ANY DISCOMFORT OR DISTRESS, WALKS UPRIGHT AND MOVES WITHOUT DIFFICULTY, SMILING, TALKATIVE. ) HEENT: scleral icterus (R), scleral icterus (L) Neck: normal inspection Respiratory: normal breath sounds, no respiratory distress, no accessory muscle use Cardiovascular: regular rate, rhythm, no murmur Gastrointestinal: distended (FIRM), tenderness (MILD EPIGASTRIC AND SUPRAPUBIC TENDERNESS), hepatomegaly (6 FB'S BELOW RIGHT COSTAL MARGIN) Extremities: normal range of motion, non-tender, normal inspection, no pedal edema, no calf tenderness, normal capillary refill Back: normal inspection, no CVA tenderness Neurologic/Psychiatric: pathology secretary/transcriptionist II-XII nml as tested, no motor/sensory deficits, alert, normal mood/affect, oriented x 3 Skin: warm/dry, jaundice (MARKED) Focused Exam Lactate Level 06/25/19 01:20: Lactic Acid Level 2.49*H 06/25/19 03:25: Lactic Acid Level 1.99 Lactic Acid Level Laboratory Tests Test 06/25/19 01:20 06/25/19 03:25 Lactic Acid Level 2.49 MMOL/L (0.50-2.00) *H 1.99 MMOL/L (0.50-2.00) Progress/Results/Core Measures Results/Orders Lab Results Laboratory Tests Test 06/25/19 01:20 06/25/19 01:45 06/25/19 03:25 Range/Units White Blood Count 10.3 4.3-11.0 10^3/uL Red Blood Count 2.90 L 4.35-5.85 10^6/uL Hemoglobin 9.5 L 13.3-17.7 G/DL Hematocrit 27 L 40-54 % Mean Corpuscular Volume 94 80-99 FL Mean Corpuscular Hemoglobin 33 25-34 PG Mean Corpuscular Hemoglobin Concent 35 32-36 G/DL Red Cell Distribution Width 20.1 H 10.0-14.5 % Platelet Count 126 L 130-400 10^3/uL Mean Platelet Volume 11.2 H 7.4-10.4 FL Neutrophils (%) (Auto) 74 42-75 % Lymphocytes (%) (Auto) 9 L 12-44 % Monocytes (%) (Auto) 16 H 0-12 % Eosinophils (%) (Auto) 1 0-10 % Basophils (%) (Auto) 0 0-10 % Neutrophils # (Auto) 7.6 1.8-7.8 X 10^3 Lymphocytes # (Auto) 0.9 L 1.0-4.0 X 10^3 Monocytes # (Auto) 1.6 H 0.0-1.0 X 10^3 Eosinophils # (Auto) 0.1 0.0-0.3 10^3/uL Basophils # (Auto) 0.0 0.0-0.1 10^3/uL Prothrombin Time 18.5 H 12.2-14.7 SEC INR Comment 1.5 H 0.8-1.4 Activated Partial Thromboplast Time 42 H 24-35 SEC Sodium Level 130 L 135-145 MMOL/L Potassium Level 3.6 3.6-5.0 MMOL/L Chloride Level 93 L 98-107 MMOL/L Carbon Dioxide Level 25 21-32 MMOL/L Anion Gap 12 5-14 MMOL/L Blood Urea Nitrogen 11 7-18 MG/DL Creatinine 0.73 0.60-1.30 MG/DL Estimat Glomerular Filtration Rate > 60 BUN/Creatinine Ratio 15 Glucose Level 125 H 70-105 MG/DL Lactic Acid Level 2.49 *H 1.99 0.50-2.00 MMOL/L Calcium Level 8.1 L 8.5-10.1 MG/DL Corrected Calcium 8.9 8.5-10.1 MG/DL Magnesium Level 1.8 1.6-2.4 MG/DL Total Bilirubin 16.8 *H 0.1-1.0 MG/DL Aspartate Amino Transf (AST/SGOT) 123 H 5-34 U/L Alanine Aminotransferase (ALT/SGPT) 36 0-55 U/L Alkaline Phosphatase 156 H 40-136 U/L Ammonia 58 H 11-32 UMOL/L Total Protein 6.1 L 6.4-8.2 GM/DL Albumin 3.0 L 3.2-4.5 GM/DL Amylase Level 27 25-125 U/L Lipase 32 8-78 U/L Acetaminophen Level < 10 L 10-30 UG/ML Serum Alcohol < 10 <10 MG/DL My Orders Orders - GUSTABO GOTTLIEB DO Ed Iv/Invasive Line Start (06/25/19 01:01) Orthostatic Vital Signs (Adult (06/25/19 01:01) Acetaminophen (06/25/19 01:01) Alcohol (06/25/19 01:01) Amylase (06/25/19 01:01) Cbc With Automated Diff (06/25/19 01:01) Comprehensive Metabolic Panel (06/25/19 01:01) Drug Screen Stat (Urine) (06/25/19 01:01) Lipase (06/25/19 01:01) Magnesium (06/25/19 01:01) Protime With Inr (06/25/19 01:01) Partial Thromboplastin Time (06/25/19 01:01) Ua Culture If Indicated (06/25/19 01:01) Ed Iv/Invasive Line Start (06/25/19 01:01) Ns Iv 1000 Ml (Sodium Chloride 0.9%) (06/25/19 01:01) Ondansetron Injection (Zofran Injectio (06/25/19 01:15) Pantoprazole Injection (Protonix Injecti (06/25/19 01:01) Pantoprazole Injection (Protonix Injecti (06/25/19 01:15) Ammonia (06/25/19 01:22) Lactic Acid Analyzer (06/25/19 01:22) Hepatitis Panel Acute (06/25/19 01:23) Hiv 1&2 Antibody (06/25/19 01:23) Blood Culture (06/25/19 01:23) Chest Pa/Lat (2 View) (06/25/19 01:39) Abdomen, Flat & Upright/Decub (06/25/19 01:39) Ed Iv/Invasive Line Start (06/25/19 02:26) Ns Iv 1000 Ml (Sodium Chloride 0.9%) (06/25/19 02:26) Ed Iv/Invasive Line Start (06/25/19 02:26) Ns Iv 1000 Ml (Sodium Chloride 0.9%) (06/25/19 02:26) Medications Given in ED Current Medications Medications Dose Ordered Sig/Juanito Route Start Time Stop Time Status Last Admin Dose Admin Ondansetron HCl 4 mg ONCE ONCE IVP 06/25/19 01:15 06/25/19 01:16 DC 06/25/19 01:28 4 MG Pantoprazole 40 mg ONCE ONCE IV 06/25/19 01:15 06/25/19 01:16 DC 06/25/19 01:28 40 MG Sodium Chloride 1,000 ml @ 0 mls/hr Q0M ONCE IV 06/25/19 01:01 06/25/19 01:05 DC 06/25/19 01:28 0 MLS/HR Sodium Chloride 1,000 ml @ 0 mls/hr Q0M ONCE IV 06/25/19 02:26 06/25/19 02:28 DC 06/25/19 02:39 0 MLS/HR Sodium Chloride 1,000 ml @ 0 mls/hr Q0M ONCE IV 06/25/19 02:26 06/25/19 02:28 DC 06/25/19 02:39 0 MLS/HR Vital Signs/I&O 06/25/19 06/25/19 06/25/19 00:42 01:20 03:42 Temp 100.2 98.9 Pulse 104 93 103 96 100 Resp 18 18 B/P (MAP) 101/58 (72) 92/57 (69) 115/70 (85) 96/57 (70) 94/59 (71) Pulse Ox 97 100 O2 Delivery Room Air Room Air Blood Pressure Mean: 72 Progress Progress Note : Progress Note NO VOMITING DURING ER STAY, NAUSEA IMPROVED WITH ZOFRAN BP UP WITH FLUIDS PT UNABLE TO VOID DURING ER STAY Diagnostic Imaging Comments CXR--MILD RLL ATELECTASIS ABDOMEN XRAYS--ASCITES, HSM, NO ACUTE PROCESS PENDING RADIOLOGIST REVIEWS Reviewed: Reviewed by [facility] Departure Communication (Admissions) 0214--CALLED [facility] --MESSAGE LEFT ON MACHINE. 0215--[facility] CALLED BACK. PAGING GI SPECIALIST, DR. ESQUIVEL. 0220--SPOKE WITH DR. ESQUIVEL, HE ADVISES TO ADMIT TO ICU / HOSPITALIST. PAGING DR. REYES [phone]--SPOKE WITH DR. REYES, HOSPITALIST, ACCEPTS PT FOR ADMIT. Impression Primary Impression: Gastrointestinal hemorrhage with hematemesis Additional Impressions: End stage liver disease History of alcohol abuse Anemia Disposition: XFER SHT-TRM HOSP Condition: Stable Transfer Transfer Facility: [facility] Method of Transfer: EMS Departure-Patient Inst. Referrals: KECIA CALDERON MD (PCP/Family) Primary Care Physician GUSTABO GOTTLIEB DO Jun 25, 2019 01:31
[2019-06-25 01:46] LABS: BASOPHILS % (AUTO) 0 % (0-10); EOSINOPHILS # (AUTO) 0.1 10^3/uL (0.0-0.3); EOSINOPHILS % (AUTO) 1 % (0-10); HEMATOCRIT 27 % (40-54); HEMOGLOBIN 9.5 G/DL (13.3-17.7); LYMPHOCYTES # (AUTO) 0.9 X 10^3 (1.0-4.0); LYMPHOCYTES % (AUTO) 9 % (12-44); MEAN CORPUSCULAR HEMOGLOBIN 33 PG (25-34); MEAN CORPUSCULAR HGB CONC 35 G/DL (32-36); MEAN CORPUSCULAR VOLUME 94 FL (80-99); MEAN PLATELET VOLUME 11.2 FL (7.4-10.4); MONOCYTES # (AUTO) 1.6 X 10^3 (0.0-1.0); MONOCYTES % (AUTO) 16 % (0-12); NEUTROPHILS # (AUTO) 7.6 X 10^3 (1.8-7.8); NEUTROPHILS % (AUTO) 74 % (42-75); PLATELET COUNT 126 10^3/uL (130-400); RED CELL DISTRIBUTION WIDTH 20.1 % (10.0-14.5); WHITE BLOOD COUNT 10.3 10^3/uL (4.3-11.0)
[2019-06-25 01:55] LABS: INR 1.5 (0.8-1.4); PROTHROMBIN TIME PATIENT 18.5 SEC (12.2-14.7)
[2019-06-25 02:03] LABS: ACETAMINOPHEN < 10 UG/ML (10-30); ALANINE AMINOTRANSFERASE 36 U/L (0-55); ALKALINE PHOSPHATASE 156 U/L (40-136); AMMONIA 58 UMOL/L (11-32); AMYLASE 27 U/L (25-125); BUN/CREATININE RATIO 15; CALCIUM 8.1 MG/DL (8.5-10.1); CARBON DIOXIDE 25 MMOL/L (21-32); CHLORIDE 93 MMOL/L (98-107); CREATININE SERUM 0.73 MG/DL (0.60-1.30); GFR ESTIMATED > 60; GLUCOSE 125 MG/DL (70-105); LIPASE 32 U/L (8-78); MAGNESIUM 1.8 MG/DL (1.6-2.4); POTASSIUM 3.6 MMOL/L (3.6-5.0); SODIUM 130 MMOL/L (135-145); TOTAL PROTEIN 6.1 GM/DL (6.4-8.2)
[2019-06-25 02:11] LABS: BILIRUBIN,TOTAL 16.8 MG/DL (0.1-1.0)
--- NOTE | 2019-06-25 03:25 | NUR ---
[facility] NOTIFIED OF TRANSFER 0326-DISPATCH NOTIFIED OF TRANSFER TO [facility]. PT INFORMED OF BED ASSIGNMENT AND ANTICIPATED WAIT TIME FOR TRANSFER
[2019-06-25 03:42] VITALS: BP 115/70
--- NOTE | 2019-06-25 08:28 | Diagnostic Imaging Report ---
EXAMINATION: Abdominal radiographs, 2 views, upright and supine. DATE: June 25, 2019. CLINICAL INDICATION: 34-year-old male, hematemesis. COMPARISON: MRI abdomen June 22, 2019. CT abdomen and pelvis June 21, 2019. COMMENTS: There is a surgical clip overlying the left upper quadrant. There are no abnormally distended gas-filled segments of bowel. There is no identified free intraperitoneal air, pneumatosis, or portal venous gas. There is no abnormal radiodensity overlying the expected positions of the kidneys. There is a left-sided pelvic calcification. This is external to the left ureter correlating with prior CT. IMPRESSION: No identified acute abdominal radiographic abnormality. Dictated by: Dictated on workstation # [id number]
--- NOTE | 2019-06-25 08:29 | Diagnostic Imaging Report ---
EXAMINATION: CHEST (PA AND LATERAL) CLINICAL INDICATION: 34-year-old male, hematemesis. COMPARISON: June 21, 2018. FINDINGS: Heart size and mediastinal contours are unremarkable. There is no identified pneumothorax. There is no pleural effusion. There is no identified focal airspace consolidation. There is no identified pneumomediastinum. IMPRESSION: 1. No identified acute cardiopulmonary abnormality. Dictated by: Dictated on workstation # [id number]
[2019-06-27 07:19] LABS: HEPATITIS C ANTIBODY C Reactive (Non-Reactive)
== END 2019-06-25 03:55 | disposition short-term general hospital (02) ==
LOC: EDUNIT# 00:19 → ER 00:21
DX: K92.2 Gastrointestinal hemorrhage, unspecified (principal); K92.0 Hematemesis; K72.90 Hepatic failure, unspecified without coma; D64.9 Anemia, unspecified; K74.60 Unspecified cirrhosis of liver; F10.10 Alcohol abuse, uncomplicated; F17.210 Nicotine dependence, cigarettes, uncomplicated; Z82.49 Family history of ischemic heart disease and other diseases of the circulatory system
CPT/HCPCS: 36415; 71046; 74019; 80053; 80074; 80320; 80329; 82140; 82150; 83605; 83690; 83735; 85025; 85610; 85730; 86703; 87040

== ENCOUNTER 2019-07-01 02:40 | Observation (INO) | payer SELFPAY, OTHER | END 2019-07-01 17:15 | disposition home or self-care (01) | LOC: ER 02:40 → 4TH 05:20 ==

== ENCOUNTER 2019-07-05 13:16 | Emergency (ER) | payer SELFPAY ==
[~2019-07-05] VITALS: Ht 71 cm; Wt 90.5 kg
[~2019-07-05 13:16] MED LIST changes: +CEPH500C; +FURO20TA4 PO; +SPIR25TA5 PO
[2019-07-05] MEDS ORDERED: FUROSEMIDE 40 MG/4 ML INJ (LASIX) IVP ONE (15:30)
[2019-07-05 15:40] LABS: BASOPHILS % (AUTO) 0 % (0-10); EOSINOPHILS # (AUTO) 0.1 10^3/uL (0.0-0.3); EOSINOPHILS % (AUTO) 1 % (0-10); HEMATOCRIT 28 % (40-54); HEMOGLOBIN 9.4 G/DL (13.3-17.7); LYMPHOCYTES # (AUTO) 0.9 X 10^3 (1.0-4.0); LYMPHOCYTES % (AUTO) 7 % (12-44); MEAN CORPUSCULAR HEMOGLOBIN 31 PG (25-34); MEAN CORPUSCULAR HGB CONC 33 G/DL (32-36); MEAN CORPUSCULAR VOLUME 94 FL (80-99); MEAN PLATELET VOLUME 11.2 FL (7.4-10.4); MONOCYTES # (AUTO) 1.5 X 10^3 (0.0-1.0); MONOCYTES % (AUTO) 11 % (0-12); NEUTROPHILS # (AUTO) 10.9 X 10^3 (1.8-7.8); NEUTROPHILS % (AUTO) 81 % (42-75); PLATELET COUNT 184 10^3/uL (130-400); WHITE BLOOD COUNT 13.4 10^3/uL (4.3-11.0)
[2019-07-05 15:45] LABS: INR 1.4 (0.8-1.4)
[2019-07-05 15:55] LABS: ALANINE AMINOTRANSFERASE 35 U/L (0-55); ALBUMIN 2.8 GM/DL (3.2-4.5); ALKALINE PHOSPHATASE 160 U/L (40-136); AMYLASE 34 U/L (25-125); BUN/CREATININE RATIO 10; CARBON DIOXIDE 22 MMOL/L (21-32); CHLORIDE 96 MMOL/L (98-107); GFR ESTIMATED > 60; GLUCOSE 111 MG/DL (70-105); LIPASE 31 U/L (8-78); SODIUM 129 MMOL/L (135-145); TOTAL PROTEIN 6.1 GM/DL (6.4-8.2)
[2019-07-05 16:03] LABS: BILIRUBIN,TOTAL 14.3 MG/DL (0.1-1.0)
[2019-07-05 16:07] LABS: ANISOCYTOSIS SLIGHT; BAND NEUTROPHILS 5 %; BASOPHILS % (MANUAL) 0 %; EOSINOPHILS % (MANUAL) 0 %; LYMPHOCYTES % (MANUAL) 5 %; MONOCYTES % (MANUAL) 8 %; NEUTROPHILS % (MANUAL) 82 %
[2019-07-05 16:08] LABS: TARGET CELLS SLIGHT; TOXIC GRANULATION/VACUOLAZATIO 1+
--- NOTE | 2019-07-05 16:12 | ED General ---
General Chief Complaint: General Problems/Pain Stated Complaint: FLUID ON STOMACH Nursing Triage Note: Pt amb to triage w/o difficulty with c/o drainage from paracentesis site. Reports to have had procedure performed on 07/01/[address] Church who pulled off approx 3L of fluid. Pt reports "same symtpoms" he had prior to fluid being withdrawn including, SOA, chest tightness, and edema. No redness, swelling, or purulent drainage noted to paracentesis site. +4 pitting edema noted to bilat lower extremities. Abd noted to be round and distended. Nursing Sepsis Screen: No Definite Risk History of Present Illness Date Seen by Provider: Jul 05, 2019 Time Seen by Provider: 14:30 Initial Comments 34-year-old male presents with reaccumulation of ascites and lower extremity edema. He was seen here on 07/01/19 and had a paracentesis with 2 L of fluid removed. He was started on Lasix 20 mg and hydrochlorothiazide 50 mg daily, he did take the medications earlier today. He reports abdominal pain and pressure with eating, due to the ascites. Timing/Duration: 1-2 Days Severity: Moderate Associated Systoms: Denies Symptoms Allergies and Home Medications Allergies Coded Allergies: No Known Drug Allergies (Unverified , 06/21/19) Home Medications Furosemide 20 Mg Tablet, 20 MG PO DAILY Prescribed by: DAMARIS SERRANO on 07/01/19 1649 Hydrochlorothiazide 25 Mg Tablet, 50 MG PO ONCE Prescribed by: TRAV ANGULO on 07/05/19 1711 Spironolactone 25 Mg Tablet, 50 MG PO DAILY Prescribed by: DAMARIS SERRANO on 07/01/19 1649 Patient Home Medication List Home Medication List Reviewed: Yes Review of Systems Review of Systems Constitutional: no symptoms reported, see HPI Gastrointestinal: see HPI, abdominal pain, jaundice, other (distention) Skin: see HPI, change in color (jaundice) All Other Systems Reviewed Negative Unless Noted: Yes Past Bggaaxt-Cwcpti-Vvswzz Hx Past Med/Social Hx: Reviewed Nursing Past Med/Soc Hx Patient Social History Type Used: Cigarettes 2nd Hand Smoke Exposure: Yes Recent Foreign Travel: No Contact w/Someone Who Travel: No Recent Infectious Disease Expo: No Recent Hopitalizations: Yes (TRANSFERED 06/25 ESOP. BANDING) Immunizations Up To Date Tetanus Booster (TDap): Unknown Seasonal Allergies Seasonal Allergies: Yes Past Medical History Surgeries: Yes (ESOPH. BANDING) Abdominal Respiratory: No Cardiac: Yes (hx of SVT as a teenager, outgrew in early 20s) Neurological: No Genitourinary: Yes Kidney Infection Gastrointestinal: Yes Liver Disease/Jaundice, Gastrointestinal Bleed, Esophageal Varices, Cirrhosis Musculoskeletal: No Endocrine: No HEENT: No Cancer: No Psychosocial: No Integumentary: Yes Psoriasis Blood Disorders: No Adverse Reaction/Blood Tranf: No Family Medical History Alcoholism Cardiovascular disease Dysphasia Psychosocial problem Severe allergy Visual disorder Hypertension Physical Exam Vital Signs Vital Signs - First Documented 07/05/19 14:00 Temp 37.4 Pulse 96 Resp 20 B/P (MAP) 111/62 (78) Pulse Ox 99 O2 Delivery Room Air Capillary Refill : Less Than 3 Seconds Height, Weight, BMI Height: 5'10.00" Weight: 202lbs. 8.0oz. 91.445760vv; 179.00 BMI Method:Stated General Appearance: No Apparent Distress, WD/WN Eyes: Bilateral Eye PERRL, Bilateral Eye EOMI, Bilateral Eye Scleral Icterus HEENT: TMs Normal, Normal ENT Inspection, Pharynx Normal Neck: Full Range of Motion, Normal Inspection, Non Tender, Supple Respiratory: Chest Non Tender, Lungs Clear, Normal Breath Sounds Cardiovascular: Regular Rate, Rhythm, No Murmur, Normal Peripheral Pulses Gastrointestinal: Normal Bowel Sounds, Distended, Hepatomegaly, Tenderness (secondary to swelling) Extremity: Normal Capillary Refill, Normal Range of Motion, No Calf Tenderness, Pedal Edema (4+ pitting), Swelling Neurologic/Psychiatric: Alert, Oriented x3, No Motor/Sensory Deficits, Normal Mood/Affect Skin: Warm/Dry, Jaundice Lymphatic: No Adenopathy Progress/Results/Core Measures Suspected Sepsis Recent Fever Within 48 Hours: No Infection Criteria Present: Suspected New Infection New/Unexplained Altered Menta: No Sepsis Screen: No Definite Risk SIRS Temperature: Pulse: 96 Respiratory Rate: 20 Laboratory Tests 07/05/19 14:23: White Blood Count 13.4H Blood Pressure 111 /62 Mean: 78 Laboratory Tests 07/05/19 14:23: Creatinine 0.60, INR Comment 1.4, Platelet Count 184, Total Bilirubin 14.3*H Results/Orders Lab Results Laboratory Tests Test 07/05/19 14:23 Range/Units White Blood Count 13.4 H 4.3-11.0 10^3/uL Red Blood Count 3.02 L 4.35-5.85 10^6/uL Hemoglobin 9.4 L 13.3-17.7 G/DL Hematocrit 28 L 40-54 % Mean Corpuscular Volume 94 80-99 FL Mean Corpuscular Hemoglobin 31 25-34 PG Mean Corpuscular Hemoglobin Concent 33 32-36 G/DL Red Cell Distribution Width 18.0 H 10.0-14.5 % Platelet Count 184 130-400 10^3/uL Mean Platelet Volume 11.2 H 7.4-10.4 FL Neutrophils (%) (Auto) 81 H 42-75 % Lymphocytes (%) (Auto) 7 L 12-44 % Monocytes (%) (Auto) 11 0-12 % Eosinophils (%) (Auto) 1 0-10 % Basophils (%) (Auto) 0 0-10 % Neutrophils # (Auto) 10.9 H 1.8-7.8 X 10^3 Lymphocytes # (Auto) 0.9 L 1.0-4.0 X 10^3 Monocytes # (Auto) 1.5 H 0.0-1.0 X 10^3 Eosinophils # (Auto) 0.1 0.0-0.3 10^3/uL Basophils # (Auto) 0.0 0.0-0.1 10^3/uL Neutrophils % (Manual) 82 % Lymphocytes % (Manual) 5 % Monocytes % (Manual) 8 % Eosinophils % (Manual) 0 % Basophils % (Manual) 0 % Band Neutrophils 5 % Toxic Granulation 1+ Anisocytosis SLIGHT Target Cells SLIGHT Prothrombin Time 18.0 H 12.2-14.7 SEC INR Comment 1.4 0.8-1.4 Activated Partial Thromboplast Time 46 H 24-35 SEC Sodium Level 129 L 135-145 MMOL/L Potassium Level 4.0 3.6-5.0 MMOL/L Chloride Level 96 L 98-107 MMOL/L Carbon Dioxide Level 22 21-32 MMOL/L Anion Gap 11 5-14 MMOL/L Blood Urea Nitrogen 6 L 7-18 MG/DL Creatinine 0.60 0.60-1.30 MG/DL Estimat Glomerular Filtration Rate > 60 BUN/Creatinine Ratio 10 Glucose Level 111 H 70-105 MG/DL Calcium Level 8.0 L 8.5-10.1 MG/DL Corrected Calcium 9.0 8.5-10.1 MG/DL Total Bilirubin 14.3 *H 0.1-1.0 MG/DL Aspartate Amino Transf (AST/SGOT) 122 H 5-34 U/L Alanine Aminotransferase (ALT/SGPT) 35 0-55 U/L Alkaline Phosphatase 160 H 40-136 U/L Total Protein 6.1 L 6.4-8.2 GM/DL Albumin 2.8 L 3.2-4.5 GM/DL Amylase Level 34 25-125 U/L Lipase 31 8-78 U/L My Orders Orders - TRAV ANGULO SEXER Furosemide Injection (Lasix Injection) (07/05/19 15:30) Amylase (07/05/19 15:32) Cbc With Automated Diff (07/05/19 15:32) Comprehensive Metabolic Panel (07/05/19 15:32) Lipase (07/05/19 15:32) Protime With Inr (07/05/19 15:32) Partial Thromboplastin Time (07/05/19 15:32) Manual Differential (07/05/19 14:23) Us Abdomen Limited [id number] (07/05/19 16:38) Medications Given in ED Current Medications Medications Dose Ordered Sig/Juanito Route Start Time Stop Time Status Last Admin Dose Admin Furosemide 40 mg ONCE ONCE IVP 07/05/19 15:30 07/05/19 15:31 DC 07/05/19 15:35 40 MG Vital Signs/I&O 07/05/19 07/05/19 14:00 17:59 Temp 37.4 Pulse 96 96 Resp 20 18 B/P (MAP) 111/62 (78) 140/91 Pulse Ox 99 96 O2 Delivery Room Air Capillary Refill : Less Than 3 Seconds Blood Pressure Mean: 78 Progress Note : Time: 14:30 Progress Note Patient seen and evaluated, will obtain labs and reevaluation. 1515 Lasix 40 mg IV for swelling. 1600 notified general surgery of patient's return visit. Awaiting reply. 1615 Dr. Bryan will come after clinic to complete a paracentesis. 1615 Dr. Bryan here to care for patient. Paracentesis is not indicated at this time. PEGGY diaz obtained for patient. 1700 discharge instructions and return precautions reviewed with the patient. All questions answered. Departure Impression Primary Impression: Liver failure, acute Qualified Codes: K72.00 - Acute and subacute hepatic failure without coma Additional Impression: Ascites Qualified Codes: R18.8 - Other ascites Disposition: HOME, SELF-CARE Condition: Improved Departure-Patient Inst. Decision time for Depature: 17:00 Referrals: KECIA CALDERON MD (PCP/Family) Primary Care Physician Patient Instructions: Acute Liver Failure (DC), Fluid in the Belly (Ascites) (DC) Add. Discharge Instructions: Continue to take your home medication as prescribed, Lasix 20 mg and hydrochlorothiazide 50 mg daily. Wear the PEGGY hose to assist with swelling in her legs. Follow-up with Dr. Church next week. Contact Dr. Bryan through the weekend if the swelling returns. Return to the emergency department for new, urgent health care needs. All discharge instructions reviewed with patient and/or family. Voiced understanding. Scripts Hydrochlorothiazide (Hydrochlorothiazide) 25 Mg Tablet 50 MG PO ONCE, #60 TAB 0 Refills Prov: TRAV ANGULO 07/05/19 Copy Copies To 1: TAMI CHURCH AMY ARNP Jul 05, 2019 16:12
--- NOTE | 2019-07-05 16:43 | NUR ---
DR CARRION HERE TO DO PARACENTSIS
[2019-07-05] MEDS ORDERED: HYDR25TA4 PO (17:11)
--- NOTE | 2019-07-05 17:21 | Diagnostic Imaging Report ---
PROCEDURE: US abdomen, limited. TECHNIQUE: Multiple realtime grayscale images were obtained over the abdomen in various projections. INDICATION: Abdominal pain. Evaluate for fluid collection. FINDINGS AND IMPRESSION: No loculated fluid collection within the right or left lower quadrant. Dictated by: Dictated on workstation # [id number]
--- NOTE | 2019-07-05 17:33 | Consultation - Surgery ---
FLORECITAYoshiLOUISE CORMIER, 07/05/19 1733: History of Present Illness History of Present Illness Patient Consulted On(emil/time) 07/05/19 17:11 Date Seen by Provider: Jul 05, 2019 Time Seen by Provider: 16:28 History of Present Illness General surgery consulted for; abdominal distension. HPI: Pt was recently hospitalized for end-stage liver disease and ascites last weekend. Dr. Elliott performed a paracentesis on Wednesday (07/01). Pt presented to the ER regarding abdominal distension. He has continued the Lasix 20mg and HCTZ 50mg that was prescribed after his previous stay. The site is constantly leaking and the pt is using feminine pads to absorb the drain. He is currently filling a regular pad in 1-2 hours. Pt is having nausea now that his abdomen is distended. He is trying to continue to eat to maintain his protein level. Denies vomiting, diarrhea, or constipation. Pt denies hematochezia, melena or hematemesis. Pt has RUQ, LUQ, RLQ, LLQ pain that radiates into his right flank. Previous occurrence of pain and distension was on Wednesday. Pt complains of SOB and that he is severely swollen everywhere, including his scrotum and bilateral LE. The SOB started once his abdomen enlarged. Pt also states he is having dark brown urine that has been constant since last weekend. Allergies and Home Medications Allergies Coded Allergies: No Known Drug Allergies (Unverified , 06/21/19) Home Medications Furosemide 20 Mg Tablet, 20 MG PO DAILY Prescribed by: DAMARIS SERRANO on 07/01/19 1649 Hydrochlorothiazide 25 Mg Tablet, 50 MG PO ONCE Prescribed by: TRAV ANGULO on 07/05/19 1711 Spironolactone 25 Mg Tablet, 50 MG PO DAILY Prescribed by: DAMARIS SERRANO on 07/01/19 1649 Patient Home Medication List Home Medication List Reviewed: Yes Past Wvislui-Dikzal-Ijnulc Hx Patient Social History Alcohol Use: Denies Use (No EtOH as of June 16) Recreational Drug Use: No Smoking Status: Current Everyday Smoker (0.25 pack/day) Type Used: Cigarettes 2nd Hand Smoke Exposure: Yes Recent Foreign Travel: No Contact w/Someone Who Travel: No Recent Infectious Disease Expo: No Recent Hopitalizations: Yes (TRANSFERED 06/25 ESOP. BANDING) Immunizations Up To Date Tetanus Booster (TDap): Unknown Seasonal Allergies Seasonal Allergies: Yes Surgeries History of Surgeries: Yes (ESOPH. BANDING) Surgeries: Abdominal Respiratory History of Respiratory Disorde: No Cardiovascular History of Cardiac Disorders: Yes (hx of SVT as a teenager, outgrew in early 20s) Neurological History of Neurological Disord: No Genitourinary History of Genitourinary Disor: Yes Genitourinary Disorders: Kidney Infection Gastrointestinal History of Gastrointestinal Di: Yes Gastrointestinal Disorders: Liver Disease/Jaundice, Gastrointestinal Bleed, Esophageal Varices, Cirrhosis Musculoskeletal History of Musculoskeletal Dis: No Endocrine History of Endocrine Disorders: No HEENT History of HEENT Disorders: No Cancer History of Cancer: No Psychosocial History of Psychiatric Problem: No Integumentary History of Skin or Integumenta: Yes Skin/Integumentary Disorders: Psoriasis Blood Transfusions History of Blood Disorders: No Adverse Reaction to a Blood Tr: No Family Medical History Significant Family History: Cancer (skin cancer in maternal grandmother), Hypertension Family Medial History: Alcoholism Cardiovascular disease Dysphasia Psychosocial problem Severe allergy Visual disorder Review of Systems-General Constitutional: No chills, No fever; weakness (generalized), weight gain (20 pound weight gain in 1 day) EENTM: No hearing loss, No vision loss Respiratory: No cough, No hemoptysis; short of breath (with abdominal distension) Cardiovascular: No chest pain, No palpitations Gastrointestinal: RUQ, LUQ, RLQ, LLQ, abdominal pain; No constipation, No diarrhea, No dysphagia, No hematemesis; jaundice; No melena; nausea; No vomiting Genitourinary: No dysuria, No frequency, No hesitancy (due to swollen scrotum) Musculoskeletal: back pain (from swelling), muscle weakness Skin: No lesions, No rash; other (feet are splitting on bottoms d/t swelling) Psychiatric/Neurological: Denies Anxiety, Denies Depressed; Tingling (bilateral LE d/t swelling) Physical Exam-General Problems Physical Exam Vital Signs Vital Signs - First Documented 07/05/19 14:00 Temp 37.4 Pulse 96 Resp 20 B/P (MAP) 111/62 (78) Pulse Ox 99 O2 Delivery Room Air Capillary Refill : Less Than 3 Seconds General Appearance: WD/WN, no apparent distress Eyes: Bilateral Eye PERRL, Bilateral Eye EOMI HEENT: pharynx normal, scleral icterus (R), scleral icterus (L) Neck: non-tender, supple Respiratory: lungs clear, normal breath sounds, no respiratory distress, no accessory muscle use Cardiovascular: regular rate, rhythm, no murmur Peripheral Pulses: 2+ Radial Pulses (R), 2+ Radial Pulses (L) Gastrointestinal: normal bowel sounds, distended, tenderness, other (caput medusa) Back: CVA tenderness (R), muscle spasm Extremities: normal inspection, pedal edema (4+ pitting edema bilateral LE) Neurologic/Psychiatric: alert, normal mood/affect, oriented x 3 Skin: warm/dry, jaundice Lymphatic: no adenopathy Data Review Labs Laboratory Tests 07/05/19 14:23: White Blood Count 13.4H, Red Blood Count 3.02L, Hemoglobin 9.4L, Hematocrit 28L, Mean Corpuscular Volume 94, Mean Corpuscular Hemoglobin 31, Mean Corpuscular H emoglobin Concent 33, Red Cell Distribution Width 18.0H, Platelet Count 184, Mean Platelet Volume 11.2H, Neutrophils (%) (Auto) 81H, Lymphocytes (%) (Auto) 7L, Monocytes (%) (Auto) 11, Eosinophils (%) (Auto) 1, Basophils (%) (Auto) 0, Neutrophils # (Auto) 10.9H, Lymphocytes # (Auto) 0.9L, Monocytes # (Auto) 1.5H, Eosinophils # (Auto) 0.1, Basophils # (Auto) 0.0, Neutrophils % (Manual) 82, Lymphocytes % (Manual) 5, Monocytes % (Manual) 8, Eosinophils % (Manual) 0, Basophils % (Manual) 0, Band Neutrophils 5, Toxic Granulation 1+, Anisocytosis SLIGHT, Target Cells SLIGHT, Prothrombin Time 18.0H, INR Comment 1.4, Activated Partial Thromboplast Time 46H, Sodium Level 129L, Potassium Level 4.0, Chloride Level 96L, Carbon Dioxide Level 22, Anion Gap 11, Blood Urea Nitrogen 6L, Creatinine 0.60, Estimat Glomerular Filtration Rate > 60, BUN/Creatinine Ratio 10, Glucose Level 111H, Calcium Level 8.0L, Corrected Calcium 9.0, Total Bilirubin 14.3*H, Aspartate Amino Transf (AST/SGOT) 122H, Alanine Aminotransferase (ALT/SGPT) 35, Alkaline Phosphatase 160H, Total Protein 6.1L, Albumin 2.8L, Amylase Level 34, Lipase 31 Assessment/Plan Assessment/Plan Assessment/Plan Ascites End-stage liver disease Hx of paracentesis Plan is to perform bedside U/S. U/S did not demonstrate a large enough pocket to perform a paracentesis. Advised to increase Lasix dose 1x to help with ascites and then continue Lasix and HCTZ as prescribed. Pt was advised to call Dr. Elliott's office to get appointment for next Wednesday, but to come back to the ER if anything worsened. BE CARRION DO 07/06/19 1637: History of Present Illness History of Present Illness History of Present Illness Patient with end stage liver disease. Abdomen has had some increased swelling. Having a little more difficulty with breathing. Having drainage from previous paracentesis site. Having pain that is mild in all quadrants. Denies fever sweats chills or chest pain. Allergies and Home Medications Allergies Coded Allergies: No Known Drug Allergies (Unverified , 06/21/19) Home Medications Furosemide 20 Mg Tablet, 20 MG PO DAILY Prescribed by: DAMARIS SERRANO on 07/01/19 1649 Hydrochlorothiazide 25 Mg Tablet, 50 MG PO ONCE Prescribed by: TRAV ANGULO on 07/05/19 1711 Spironolactone 25 Mg Tablet, 50 MG PO DAILY Prescribed by: DAMARIS SERRANO on 07/01/19 1649 Patient Home Medication List Home Medication List Reviewed: Yes Past Yfhqgyl-Hptigo-Vzqujs Hx Patient Social History Alcohol Use: Denies Use (No EtOH as of June 16) Smoking Status: Current Everyday Smoker (0.25 pack/day) Type Used: Cigarettes Surgeries Surgeries: Abdominal (paracentesis) Respiratory History of Respiratory Disorde: No Cardiovascular History of Cardiac Disorders: No Neurological History of Neurological Disord: No Genitourinary Genitourinary Disorders: Kidney Infection Gastrointestinal Gastrointestinal Disorders: Liver Disease/Jaundice, Gastrointestinal Bleed, Esophageal Varices Endocrine History of Endocrine Disorders: No HEENT History of HEENT Disorders: No Cancer History of Cancer: No Psychosocial History of Psychiatric Problem: No Integumentary History of Skin or Integumenta: No Family Medical History Significant Family History: Cancer (skin cancer in maternal grandmother), Hypertension Family Medial History: Alcoholism Cardiovascular disease Dysphasia Psychosocial problem Severe allergy Visual disorder Review of Systems-General Constitutional: weakness (generalized), weight gain (20 pound weight gain in 1 day) EENTM: No hearing loss, No vision loss Respiratory: No cough, No hemoptysis; short of breath (with abdominal distension) Cardiovascular: No chest pain Gastrointestinal: RUQ, LUQ, RLQ, LLQ, abdominal pain (RUQ); No constipation, No diarrhea, No dysphagia, No hematemesis; jaundice; No melena; nausea; No vomiting Genitourinary: No dysuria Musculoskeletal: back pain (from swelling), muscle weakness Psychiatric/Neurological: Denies Anxiety, Denies Depressed Physical Exam-General Problems Physical Exam General Appearance: no apparent distress HEENT: scleral icterus (R), scleral icterus (L) Neck: non-tender, supple Respiratory: lungs clear, no respiratory distress, no accessory muscle use Cardiovascular: regular rate, rhythm Gastrointestinal: distended, tenderness, other (caput medusa, small opening right abdomen from previous paracentesis) Back: CVA tenderness (R) Extremities: pedal edema (4+ pitting edema bilateral LE) Neurologic/Psychiatric: alert, normal mood/affect Skin: jaundice Lymphatic: no adenopathy Assessment/Plan Assessment/Plan Assessment/Plan end stage liver disease ascites abdominal distention nausea mild diffuse abdominal painn u/s performed at bedside without a drainable collection at this time do not feel that it is safe to drain at this time. Patient understands these findings. Patient will follow up in [address] Elliott and if any issues before that be seen at that time. He understands that he could still develp a drainable collection before his follow up visit and if does we'll drain. Patient received IV lasix in ER which may give him short term benefit. Patient was seen and evaluated in emergency dept. Supervisory-Addendum Brief Verification & Attestation Participated in pt care: history, MDM, physical Personally performed: exam, history, MDM, supervision of care Care discussed with: Medical Student Procedures: n/a Results interpretation: Verified all documentation Verification and Attestation of Medical Student E/M Service A medical student performed and documented this service in my presence. I reviewed and verified all information documented by the medical student and made modifications to such information, when appropriate. I personally performed the physical exam and medical decision making. Be Carrion, Jul 05, 2019,16:41 LOUISE MAYA, Jul 05, 2019 17:33 BE CARRION DO Jul 06, 2019 16:37
[2019-07-05 17:59] VITALS: BP 140/91
== END 2019-07-05 17:59 | disposition home or self-care (01) ==
LOC: EDUNIT# 13:16 → ER 13:17
DX: K72.00 Acute and subacute hepatic failure without coma (principal); R18.8 Other ascites; K74.60 Unspecified cirrhosis of liver; Z77.22 Contact with and (suspected) exposure to environmental tobacco smoke (acute) (chronic); Z98.890 Other specified postprocedural states; Z82.49 Family history of ischemic heart disease and other diseases of the circulatory system
CPT/HCPCS: 36415; 76705; 80053; 82150; 83690; 85007; 85027; 85610; 85730; 96374

== ENCOUNTER 2019-07-12 20:38 | Emergency (ER) | payer SELFPAY ==
[~2019-07-12] VITALS: Ht 180 cm; Wt 90.5 kg
[~2019-07-12 20:38] MED LIST changes: +HYDR25TA4 PO
[2019-07-12] MEDS ORDERED: fentaNYL INJECTION 100 MCG/2 ML AMP IVP ONE (21:30)
[2019-07-12 21:31] LABS: BASOPHILS % (AUTO) 0 % (0-10); EOSINOPHILS # (AUTO) 0.2 10^3/uL (0.0-0.3); EOSINOPHILS % (AUTO) 1 % (0-10); HEMATOCRIT 22 % (40-54); HEMOGLOBIN 7.1 G/DL (13.3-17.7); LYMPHOCYTES % (AUTO) 11 % (12-44); MEAN CORPUSCULAR HEMOGLOBIN 31 PG (25-34); MEAN CORPUSCULAR HGB CONC 33 G/DL (32-36); MEAN CORPUSCULAR VOLUME 94 FL (80-99); MEAN PLATELET VOLUME 10.7 FL (7.4-10.4); MONOCYTES % (AUTO) 11 % (0-12); NEUTROPHILS # (AUTO) 14.1 X 10^3 (1.8-7.8); NEUTROPHILS % (AUTO) 77 % (42-75); PLATELET COUNT 194 10^3/uL (130-400); RED CELL DISTRIBUTION WIDTH 17.6 % (10.0-14.5); WHITE BLOOD COUNT 18.3 10^3/uL (4.3-11.0)
[2019-07-12 21:40] LABS: INR 1.7 (0.8-1.4); PROTHROMBIN TIME PATIENT 21.1 SEC (12.2-14.7)
[2019-07-12 21:46] LABS: ALANINE AMINOTRANSFERASE 20 U/L (0-55); ALBUMIN 2.3 GM/DL (3.2-4.5); ALKALINE PHOSPHATASE 119 U/L (40-136); BILIRUBIN,TOTAL 10.4 MG/DL (0.1-1.0); BUN/CREATININE RATIO 13; CALCIUM 7.4 MG/DL (8.5-10.1); CARBON DIOXIDE 19 MMOL/L (21-32); CHLORIDE 100 MMOL/L (98-107); CREATININE SERUM 0.72 MG/DL (0.60-1.30); GFR ESTIMATED > 60; GLUCOSE 112 MG/DL (70-105); POTASSIUM 4.2 MMOL/L (3.6-5.0); SODIUM 131 MMOL/L (135-145); TOTAL PROTEIN 4.9 GM/DL (6.4-8.2)
[2019-07-12] MEDS ORDERED: PIPERACILLIN/TAZO 4.5 GM VIAL (ZOSYN) IV ONE (21:47)
[2019-07-12] MEDS ORDERED: NS (IVPB) 100 ML ONE ×2 (21:49→22:24)
[2019-07-12] MEDS ORDERED: ONDANSETRON 4 MG/2 ML (SDV) Z0FRAN ONE (21:53)
[2019-07-12 21:54] LABS: ANISOCYTOSIS MODERATE; BAND NEUTROPHILS 3 %; BASOPHILS % (MANUAL) 0 %; CRENATED RBC SLIGHT; EOSINOPHILS % (MANUAL) 1 %; HYPOCHROMASIA SLIGHT; LYMPHOCYTES % (MANUAL) 13 %; MICROCYTOSIS SLIGHT; MONOCYTES % (MANUAL) 4 %; NEUTROPHILS % (MANUAL) 79 %; POIKILOCYTOSIS SLIGHT; POLYCHROMASIA SLIGHT; TARGET CELLS SLIGHT
[2019-07-12] MEDS ORDERED: FAMOTIDINE 20MG/2ML IV (PEPCID) ONE (21:55)
[2019-07-12] MEDS ORDERED: PANTOPRAZOLE 40 MG (PROTONIX) VIAL ONE (21:55)
[2019-07-12] MEDS ORDERED: PIPERACILLIN/TAZOBACTAM (BULK) 4.5 GM in NS (IVPB) 100 ML IV ONE (22:00)
[2019-07-12] MEDS ORDERED: NS IV 500 ML 500 ML ONE ×2 (22:07→22:42)
--- NOTE | 2019-07-12 22:09 | ED General ---
General Chief Complaint: General Problems/Pain Stated Complaint: FLUID IN CHEST AREA Nursing Triage Note: PT AMB TO [facility] 4 WITH COMPLAINT OF ABD/TESTICULAR SWELLING, WEIGHT GAIN. PT HAS CIRRHOSIS OF THE LIVER. Nursing Sepsis Screen: Possible Severe Sepsis Risk Source of Information: Patient Exam Limitations: No Limitations History of Present Illness Date Seen by Provider: Jul 12, 2019 Time Seen by Provider: 21:15 Initial Comments This 34-year-old gentleman with liver failure and liver cancer presents to the emergency room with intense painful abdominal distention. He had presented to the ER on July 05 for paracentesis. A pocket large enough to safely perform paracentesis was not found. Paracentesis was deferred. Symptoms have worsened since then. He also reports low-grade fevers. Temperature on assessment was 100.2. He is also tachycardic. Review of chart notes a positive hepatitis C antibody screen within indeterminate index. A confirmatory viral load was not performed. Patient does have history of alcohol use but has abstained recently. Liver cancer diagnosis has been made by imaging. He has not had a biopsy yet. He has a pending appointment with specialist at [facility] next Wednesday. Dr. Church is his primary surgeon. Allergies and Home Medications Allergies Coded Allergies: No Known Drug Allergies (Unverified , 06/21/19) Home Medications Furosemide 20 Mg Tablet, 20 MG PO DAILY Prescribed by: DAMARIS SERRANO on 07/01/19 1649 Hydrochlorothiazide 25 Mg Tablet, 50 MG PO ONCE Prescribed by: TRAV ANGULO on 07/05/19 1711 Spironolactone 25 Mg Tablet, 50 MG PO DAILY Prescribed by: DAMARIS SERRANO on 07/01/19 1649 Patient Home Medication List Home Medication List Reviewed: Yes Review of Systems Review of Systems Constitutional: see HPI EENTM: other (scleral icterus and jaundice) Respiratory: short of breath Cardiovascular: see HPI (tachycardia) Gastrointestinal: see HPI Genitourinary: no symptoms reported Musculoskeletal: no symptoms reported Skin: see HPI (jaundiced) Psychiatric/Neurological: No Symptoms Reported Hematologic/Lymphatic: See HPI Immunological/Allergic: see HPI Past Wvtaqbm-Nnfkdn-Ojxeud Hx Past Med/Social Hx: Reviewed and Corrections made Patient Social History Alcohol Use: Past History Recreational Drug Use: No Smoking Status: Current Everyday Smoker Type Used: Cigarettes 2nd Hand Smoke Exposure: Yes Recent Foreign Travel: No Contact w/Someone Who Travel: No Recent Infectious Disease Expo: No Recent Hopitalizations: Yes (TRANSFERED 06/25 ESOP. BANDING) Physical Abuse: No Sexual Abuse: No Mistreated: No Fear: No Immunizations Up To Date Tetanus Booster (TDap): Unknown Seasonal Allergies Seasonal Allergies: Yes Past Medical History Surgeries: Yes (ESOPH. BANDING) Abdominal Respiratory: No Cardiac: No Neurological: No Genitourinary: Yes Kidney Infection Gastrointestinal: Yes Liver Disease/Jaundice, Gastrointestinal Bleed, Esophageal Varices, Hepatitis (positive hepatitis C screen with indeterminate index. Viral load and genot yping not yet performed.) Musculoskeletal: No Endocrine: No HEENT: No Cancer: No Psychosocial: No Integumentary: No Psoriasis Blood Disorders: No Adverse Reaction/Blood Tranf: No Family Medical History Reviewed Nursing Family Hx Alcoholism Cardiovascular disease Dysphasia Psychosocial problem Severe allergy Visual disorder Cancer, Hypertension Physical Exam-Suspected Sepsis Physical Exam Vital Signs Vital Signs - First Documented 07/12/19 07/12/19 21:03 21:05 Temp 37.9 Pulse 116 Resp 20 B/P (MAP) 117/66 (83) Pulse Ox 98 O2 Delivery Room Air O2 Flow Rate 2.00 Capillary Refill : Less Than 3 Seconds Blood Pressure Mean: 84 Height, Weight, BMI Height: 5'10.00" Weight: 202lbs. 8.0oz. 91.579180rd; 27.00 BMI Method:Stated General Appearance: WD/WN, Moderate Distress HEENT: PERRL/EOMI, Scleral Icterus (L), Scleral Icterus (R), Other (oropharynx somewhat dry) Neck: Normal Inspection Respiratory: No Accessory Muscle Use, No Respiratory Distress, Crackles (faint in the bases) Cardiovascular: No Murmur, Tachycardia, Other (bilateral lower extremity edema) Gastrointestinal: Distended, Tenderness (diffuse) Extremity: Pedal Edema, Swelling, Other (generalized tenderness) Neurologic/Psychiatric: Alert, Oriented x3, No Motor/Sensory Deficits, Normal Mood/Affect, thermocouple tester II-XII Norm as Tested Skin: warm/dry, jaundice Focused Exam Lactate Level 07/12/19 21:15: Lactic Acid Level 3.86*H Lactic Acid Level Laboratory Tests Test 07/12/19 21:15 Lactic Acid Level 3.86 MMOL/L (0.50-2.00) *H Progress/Results/Core Measures Suspected Sepsis Recent Fever Within 48 Hours: No Infection Criteria Present: Suspected New Infection New/Unexplained Altered Menta: No Sepsis Screen: Possible Severe Sepsis Risk SIRS Temperature: Pulse: 117 Respiratory Rate: 20 Laboratory Tests 07/12/19 21:15: White Blood Count 18.3H Blood Pressure 120 /67 Mean: 84 07/12/19 21:15: Lactic Acid Level 3.86*H Laboratory Tests 07/12/19 21:15: Creatinine 0.72, INR Comment 1.7H, Platelet Count 194, Total Bilirubin 10.4H Results/Orders Lab Results Laboratory Tests Test 07/12/19 21:15 07/12/19 22:00 Range/Units White Blood Count 18.3 H 4.3-11.0 10^3/uL Red Blood Count 2.29 L 4.35-5.85 10^6/uL Hemoglobin 7.1 L 13.3-17.7 G/DL Hematocrit 22 L 40-54 % Mean Corpuscular Volume 94 80-99 FL Mean Corpuscular Hemoglobin 31 25-34 PG Mean Corpuscular Hemoglobin Concent 33 32-36 G/DL Red Cell Distribution Width 17.6 H 10.0-14.5 % Platelet Count 194 130-400 10^3/uL Mean Platelet Volume 10.7 H 7.4-10.4 FL Neutrophils (%) (Auto) 77 H 42-75 % Lymphocytes (%) (Auto) 11 L 12-44 % Monocytes (%) (Auto) 11 0-12 % Eosinophils (%) (Auto) 1 0-10 % Basophils (%) (Auto) 0 0-10 % Neutrophils # (Auto) 14.1 H 1.8-7.8 X 10^3 Lymphocytes # (Auto) 2.0 1.0-4.0 X 10^3 Monocytes # (Auto) 2.0 H 0.0-1.0 X 10^3 Eosinophils # (Auto) 0.2 0.0-0.3 10^3/uL Basophils # (Auto) 0.0 0.0-0.1 10^3/uL Neutrophils % (Manual) 79 % Lymphocytes % (Manual) 13 % Monocytes % (Manual) 4 % Eosinophils % (Manual) 1 % Basophils % (Manual) 0 % Band Neutrophils 3 % Polychromasia SLIGHT Hypochromasia SLIGHT Poikilocytosis SLIGHT Anisocytosis MODERATE Microcytosis SLIGHT Macrocytosis MODERATE Target Cells SLIGHT Crenated Cell SLIGHT Prothrombin Time 21.1 H 12.2-14.7 SEC INR Comment 1.7 H 0.8-1.4 Activated Partial Thromboplast Time 45 H 24-35 SEC Sodium Level 131 L 135-145 MMOL/L Potassium Level 4.2 3.6-5.0 MMOL/L Chloride Level 100 98-107 MMOL/L Carbon Dioxide Level 19 L 21-32 MMOL/L Anion Gap 12 5-14 MMOL/L Blood Urea Nitrogen 9 7-18 MG/DL Creatinine 0.72 0.60-1.30 MG/DL Estimat Glomerular Filtration Rate > 60 BUN/Creatinine Ratio 13 Glucose Level 112 H 70-105 MG/DL Lactic Acid Level 3.86 *H 0.50-2.00 MMOL/L Calcium Level 7.4 L 8.5-10.1 MG/DL Corrected Calcium 8.8 8.5-10.1 MG/DL Total Bilirubin 10.4 H 0.1-1.0 MG/DL Aspartate Amino Transf (AST/SGOT) 103 H 5-34 U/L Alanine Aminotransferase (ALT/SGPT) 20 0-55 U/L Alkaline Phosphatase 119 40-136 U/L Total Protein 4.9 L 6.4-8.2 GM/DL Albumin 2.3 L 3.2-4.5 GM/DL Urine Color LOWELL H Urine Clarity SLIGHTLY CLOUDY Urine pH 5 5-9 Urine Specific [place] 1.025 H 1.016-1.022 Urine Protein 2+ H NEGATIVE Urine Glucose (UA) NEGATIVE NEGATIVE Urine Ketones 1+ H NEGATIVE Urine Nitrite POSITIVE H NEGATIVE Urine Bilirubin 3+ H NEGATIVE Urine Urobilinogen 12 H NORMAL MG/DL Urine Leukocyte Esterase 1+ H NEGATIVE Urine RBC (Auto) 1+ H NEGATIVE Urine RBC NONE /HPF Urine WBC 10-25 H /HPF Urine Squamous Epithelial Cells RARE /HPF Urine Crystals NONE /LPF Urine Bacteria FEW H /HPF Urine Casts PRESENT /LPF Urine Hyaline Casts 0-2 H /LPF Urine White Blood Cell Casts 0-2 H /LPF Urine Mucus LARGE H /LPF Urine Culture Indicated CULTURE PENDING My Orders Orders - ROSALIA ARRIAZA MD Cbc With Automated Diff (07/12/19 21:24) Comprehensive Metabolic Panel (07/12/19 21:24) Blood Culture (07/12/19 21:24) Sputum Culture (07/12/19 21:24) Urinalysis (07/12/19:24) Urine Culture (07/12/19:24) Protime With Inr (07/12/19:24) Partial Thromboplastin Time (07/12/19:24) Chest 1 View, Ap/Pa Only (07/12/19:24) Ed Iv/Invasive Line Start (07/12/19:24) Ed Iv/Invasive Line Start (07/12/19:24) Vital Signs Adult Sepsis Patie Q15M (07/12/19:24) O2 (07/12/19:24) Remove Rings In Anticipation O (07/12/19:24) Lactic Acid Analyzer (07/12/19:24) Fentanyl Injection (Sublimaze Injection (07/12/19 21:30) Manual Differential (07/12/19 21:15) Piperacillin/Tazobactam (Bulk) (Zosyn In (07/12/19 22:00) Piperacillin Sodium/Tazobactam (Zosyn Vi (07/12/19 21:47) Ns (Ivpb) (Sodium Chloride 0.9% Ivpb Bag (07/12/19 21:49) Ondansetron Injection (Zofran Injectio (07/12/19 21:53) Pantoprazole Injection (Protonix Injecti (07/12/19 21:55) Famotidine Injection (Pepcid Injection) (07/12/19 21:55) Red Cells Leukocytes Reduced (07/12/19 22:03) Type And Screen (07/12/19 22:03) Pantoprazole Injection (Protonix Injecti (07/12/19 22:15) Famotidine Injection (Pepcid Injection) (07/12/19 22:15) Ondansetron Injection (Zofran Injectio (07/12/19 22:15) Fresh Frozen Plasma (07/12/19 22:09) Ns Iv 500 Ml (Sodium Chloride 0.9%) (07/12/19 22:07) Morphine Injection (Morphine Injection (07/12/19 22:16) Ns (Ivpb) (Sodium C... W/Octreotide Inj (07/12/19 22:30) Octreotide Injection (Sandostatin Inje (07/12/19 22:30) Ns (Ivpb) (Sodium Chloride 0.9% Ivpb Bag (07/12/19 22:24) Ns Iv 500 Ml (Sodium Chloride 0.9%) (07/12/19 22:42) Medications Given in ED Current Medications Medications Dose Ordered Sig/Juanito Route Start Time Stop Time Status Last Admin Dose Admin Famotidine 20 mg ONCE ONCE IVP 07/12/19 22:15 07/12/19 22:16 DC 07/12/19 22:10 20 MG Fentanyl Citrate 75 mcg ONCE ONCE IVP 07/12/19 21:30 07/12/19 21:31 DC 07/12/19 21:40 75 MCG Ondansetron HCl 8 mg ONCE ONCE IVP 07/12/19 22:15 07/12/19 22:16 DC 07/12/19 22:05 8 MG Pantoprazole 80 mg ONCE ONCE IV 07/12/19 22:15 07/12/19 22:16 DC 07/12/19 22:11 80 MG Piperacillin Sod/ Tazobactam Sod 4.5 gm/Sodium Chloride 120 ml @ 240 mls/hr ONCE ONCE IV 07/12/19 22:00 07/12/19 22:29 DC 07/12/19 22:05 240 MLS/HR Sodium Chloride 500 ml @ ud STK-MED ONCE .ROUTE 07/12/19 22:07 07/12/19 22:16 DC 07/12/19 22:23 30 MLS/HR Sodium Chloride 500 ml @ ud STK-MED ONCE .ROUTE 07/12/19 22:42 07/12/19 22:51 DC 07/12/19 22:58 30 MLS/HR Vital Signs/I&O 07/12/19 07/12/19 07/12/19 21:03 21:05 21:42 Temp 37.9 37.6 Pulse 116 117 Resp 20 20 B/P (MAP) 117/66 (83) 120/67 Pulse Ox 98 98 O2 Delivery Room Air Nasal Cannula O2 Flow Rate 2.00 Capillary Refill : Less Than 3 Seconds Blood Pressure Mean: 84 Progress Note #1: Time: 22:05 Progress Note Case was discussed with Dr. Church and Dr. Bryan. They preferred to perform paracentesis in the morning when ultrasound is available. In the meantime they recommended treating with Zosyn as patient may have bacterial peritonitis and possibly sepsis given his white count, tachycardia, and borderline temperature. Blood cultures and lactic acid were drawn. Zosyn is being administered. In the meantime, patient vomited approximate 500 mL of blood. He has a history of esophageal varices banded at [facility]. Plans have now changed. I would like to transfer him emergently to [facility] since banding procedures are not available at [facility]. I have ordered Zofran, Protonix 80 mg IV, and Pepcid 20 mg. We will also start transfusions of packed red blood cells and FFP. Progress Note #2: Time: 22:39 Progress Note Case was discussed with Dr. Haddad, gelatin maker utility at [facility]. Transfer is acc epted. He requested the addition of an octreotide drip. O- blood and is now infusing. Crossmatched blood and FFP are pending. Blood pressure remained stable. He has had no further vomiting. Patient will be transferred by air. He requests a full CODE STATUS. Progress Note #3: Time: 23:17 Progress Note The air transport crew is now here to transfer patient. He is finishing his second unit of O- blood. FFP will be initiated immediately after the blood. Vital signs remained stable. Octreotide drip is running. Diagnostic Imaging Diagonstic Imaging: Xray Plain Films/CT/US/NM/MRI: chest Comments NAME: JACKIE MARTINEZ [facility] REC#: [id number] PT STATUS: REG ER : 1985 PHYSICIAN: ROSALIA ARRIAZA MD ADMIT DATE: 07/12/19/ER Draft Date of Exam:07/12/19 CHEST 1 VIEW, AP/PA ONLY INDICATION: Abdominal distention with pain and jaundice Upright portable AP view of the chest is obtained. Since 07/01/2019, there has been mild reduction in right basilar atelectasis. Mild residual basilar atelectasis is present bilaterally without evidence of pneumothorax or new consolidation. IMPRESSION: Study limited by hypoventilation with persistent basilar atelectasis showing mild improvement on the right. Dictated on workstation # [id number] Dict: 07/12/192207 Trans: 07/12/19 [facility] [id number] Interpreted by: GIORGIO ARIAS MD Reviewed: Reviewed by Me Departure Impression Primary Impression: Severe anemia Additional Impressions: Hematemesis Qualified Codes: K92.0 - Hematemesis Liver failure Qualified Codes: K72.90 - Hepatic failure, unspecified without coma Liver cancer Qualified Codes: C22.9 - Malignant neoplasm of liver, not specified as primary or secondary Ascites Qualified Codes: R18.8 - Other ascites Esophageal varices Qualified Codes: I85.11 - Secondary esophageal varices with bleeding Disposition: XFER SHT-TRM HOSP Condition: Stable Transfer Time Spoke to Accepting Phy: 22:25 Transfer Progress Notes Transfer accepted by Dr. Haddad, gelatin maker utility at [facility]. Transfer Time: 23:18 Transfer Facility: [facility] Method of Transfer: Air Departure-Patient Inst. Referrals: KECIA CALDERON MD (PCP/Family) Primary Care Physician Copy Copies To 1: TAMI CHURCH JOSHUA T MD Jul 12, 2019 22:09
[2019-07-12] MEDS ORDERED: FAMOTIDINE 20MG/2ML IV (PEPCID) IVP ONE (22:15)
[2019-07-12] MEDS ORDERED: ONDANSETRON 4 MG/2 ML (SDV) Z0FRAN IVP ONE (22:15)
[2019-07-12] MEDS ORDERED: PANTOPRAZOLE 40 MG (PROTONIX) VIAL IV ONE (22:15)
[2019-07-12] MEDS ORDERED: morphine INJ 10 MG/ML 1ML (SYR OR VIAL) IVP STA (22:16)
[2019-07-12 22:19] LABS: CLARITY,URINE SLIGHTLY CLOUDY; COLOR,URINE AMBER; GLUCOSE, URINE (UA) NEGATIVE (NEGATIVE); KETONES,URINE 1+ (NEGATIVE); LEUKOCYTE ESTERASE ,URINE 1+ (NEGATIVE); NITRITE,URINE POSITIVE (NEGATIVE); PH,URINE 5 (5-9); PROTEIN,URINE 2+ (NEGATIVE); UROBILINOGEN,URINE 12 MG/DL (NORMAL)
--- NOTE | 2019-07-12 22:24 | Diagnostic Imaging Report ---
INDICATION: Abdominal distention with pain and jaundice Upright portable AP view of the chest is obtained. Since 07/01/2019, there has been mild reduction in right basilar atelectasis. Mild residual basilar atelectasis is present bilaterally without evidence of pneumothorax or new consolidation. IMPRESSION: Study limited by hypoventilation with persistent basilar atelectasis showing mild improvement on the right. Dictated by: Dictated on workstation # [id number]
[2019-07-12 22:28] LABS: BILIRUBIN,URINE 3+ (NEGATIVE)
[2019-07-12 22:29] VITALS: BP 102/51
[2019-07-12 22:29] LABS: BACTERIA,URINE FEW /HPF
--- NOTE | 2019-07-12 22:29 | NUR ---
INFUSION OF 1UNIT OF O NEG BLOOD BEGINS. VITALS: TEMP 37.6 P 117 R 20 BP 95/58 PAIN 5/10 22:36- PT REMAINS FREE OF S/S OF ADVERSE REACTION TO INFUSION VITALS: T 37.5 P 120 RR 20 BP 104/54 02 99 PAIN 5/10
[2019-07-12 22:30] LABS: HYALINE CASTS, URINE 0-2 /LPF; SQUAMOUS EPITHELIAL CELL,UR RARE /HPF; WHITE BLOOD CELL CASTS, URINE 0-2 /LPF
[2019-07-12] MEDS ORDERED: OCTREOTIDE INJECTION 500 MCG in NS (IVPB) 99 ML IV SCH ×4 (22:30)
[2019-07-12] MEDS ORDERED: OCTREOTIDE INJECTION 50 MCG in NS (IVPB) 50 ML IV ONE ×4 (22:30)
[2019-07-12 22:58] VITALS: BP 104/59
--- NOTE | 2019-07-12 23:05 | NUR ---
[facility] ONS[facility] FOR PT TRANSPORT. REPORT GIVEN TO ISABELLA PARDO.
--- NOTE | 2019-07-12 23:17 | NUR ---
ONE UNIT OF FFP ORDERED BY DR. ARRIAZA TO INFUSE IN FLIGHT, GIVEN TO FLIGHT STAFF
[2019-07-12 23:18] VITALS: BP 104/59
--- NOTE | 2019-07-12 23:18 | NUR ---
PT OFFSITE TO [facility] IN STABLE CONDITION.
== END 2019-07-12 23:17 | disposition short-term general hospital (02) ==
LOC: EDUNIT# 20:38 → ER 20:39
DX: D64.9 Anemia, unspecified (principal); K92.0 Hematemesis; K72.90 Hepatic failure, unspecified without coma; R18.8 Other ascites; I85.00 Esophageal varices without bleeding; F17.210 Nicotine dependence, cigarettes, uncomplicated; Z82.49 Family history of ischemic heart disease and other diseases of the circulatory system
CPT/HCPCS: 36415; 71045; 80053; 81000; 83605; 85007; 85027; 85610; 85730; 86850; 86900; 86901; 86920; 87040; 87088; 96365; 96367; 96375